=== PATIENT | female | born 1930 | race Hispanic/Latino ===

== ENCOUNTER 2016-12-03 08:40 | Emergency (ER) | payer MEDICARE ==
[2016-12-03 08:59] VITALS: TEMP 98.3
--- NOTE | 2016-12-03 09:06 | ED PDOC ---
Arrival/HPI - General Time Seen by Provider: 12/03/16 08:47 Historian: Patient, Family - History of Present Illness Narrative History of Present Illness (Text): 12/03/16 08:50 Debbi Peterson is an 85 year old female, whose past medical history includes multiple triple myeloma, andhypercholestrolemia, who presents to the emergency department complaining of dizziness since three days ago. Patient reports feeling this dizziness and loss of balance after she does light activity. She states feeling "heaviness" on her head and notes she has mild shortness of breath due to her intermittent episodes of pain caused by her myeloma. The pain from her myeloma usually comes from the right upper back and moves around to the left side. She also reports feeling lethargic for the past couple of days. Patient denies any chest pain, headache, abdominal pain, nausea, vomiting, diarrhea, dysruia or other complaints. PMD: Dr. Garcia and Dr. Blandon Oncologist: Dr. Vila Time/Duration: < week (3 days) Symptom Onset: Sudden Symptom Course: Unchanged Quality: Other ("heaviness" on head) Activities at Onset: Light Modifying Factors (Text): dizziness during light activity and mild shortness of breath when intermittent episode of pain due to myeloma Associated Symptoms (Text): lethargic Past Medical History - Provider Review Nursing Documentation Reviewed: Yes - Cardiac Hx Cardiac Disorders: Yes - Pulmonary Hx Respiratory Disorders: No - Neurological Hx Neurological Disorder: No - HEENT Hx HEENT Disorder: Yes Hx Cataracts: Yes - Renal Hx Renal Disorder: No - Endocrine/Metabolic Hx Endocrine Disorders: Yes Hx Hyperthyroidism: Yes - Hematological/Oncological Hx Blood Disorders: Yes Hx Lymphoma: Yes - Integumentary Hx Dermatological Disorder: Yes Other/Comment: skin cancer - Musculoskeletal/Rheumatological Hx Musculoskeletal Disorders: Yes Hx Arthritis: Yes - Gastrointestinal Hx Gastrointestinal Disorders: No - Genitourinary/Gynecological Hx Genitourinary Disorders: No - Psychiatric Hx Psychophysiologic Disorder: No Hx Substance Use: No - Past Surgical History Past Surgical History: No Previous - Surgical History Hx Hysterectomy: Yes Other/Comment: knee replacement Family/Social History - Physician Review Nursing Documentation Reviewed: Yes Family/Social History: Unknown Family HX Smoking Status: Never Smoked Hx Alcohol Use: No Hx Substance Use: No Allergies/Home Meds Allergies/Adverse Reactions: Allergies atorvastatin calcium [From Lipitor] Allergy (Verified 07/27/15 11:29) SWELLING naproxen Allergy (Verified 07/27/15 11:29) RASH shellfish derived Allergy (Verified 07/27/15 11:29) SWELLING Home Medications: Home Meds Medication Instructions Recorded Confirmed traMADol [Ultram] 50 mg PO Q6 PRN 12/03/16 12/03/16 Review of Systems - Review of Systems Constitutional: Fatigue. absent: Fevers Respiratory: SOB (mild shortness of breath when pain of myeloma presents) Cardiovascular: absent: Chest Pain Gastrointestinal: absent: Abdominal Pain, Diarrhea, Nausea, Vomiting Genitourinary Female: absent: Dysuria Neurological: Dizziness. absent: Headache Physical Exam Vital Signs Reviewed: Yes Vital Signs Temp Pulse Resp BP Pulse Ox 12/03/16 11:51 60 16 135/61 99 12/03/16 10:41 52 L 12 123/69 98 12/03/16 08:53 98.3 F 70 18 150/66 88 L Temperature: Afebrile Blood Pressure: Normal Pulse: Regular Respiratory Rate: Normal Appearance: Positive for: Well-Appearing, Non-Toxic, Comfortable Pain Distress: None Mental Status: Positive for: Alert and Oriented X 3 - Systems Exam Head: Present: Atraumatic, Normocephalic Pupils: Present: PERRL Extroacular Muscles: Present: EOMI Conjunctiva: Present: Normal Neck: Present: Normal Range of Motion Respiratory/Chest: Present: Clear to Auscultation, Good Air Exchange. No: Respiratory Distress, Accessory Muscle Use Cardiovascular: Present: Regular Rate and Rhythm, Normal S1, S2. No: Murmurs Abdomen: Present: Normal Bowel Sounds. No: Tenderness, Distention, Peritoneal Signs Upper Extremity: Present: Normal Inspection. No: Cyanosis, Edema Lower Extremity: Present: Normal Inspection. No: Edema Neurological: Present: GCS=15, CN II-XII Intact, Speech Normal Skin: Present: Warm, Dry, Normal Color. No: Rashes Psychiatric: Present: Alert, Oriented x 3, Normal Insight, Normal Concentration Medical Decision Making ED Course and Treatment: 12/03/16 Impression: 85 year old female with 3 days of dizziness and mild shortness of breath due to multiple myeloma diagnosis. Differential Diagnosis included but are not limited to: electro abnormality vs. brain tumor. secondary complain r/o ACS vs. pulmonary embolism Plan: -- EKG -- Chest X-ray -- CT Head without contrast -- Labs -- Reassess and disposition Progress Notes: EKG: Ordered, reviewed, and independently interpreted the EKG. Rate : 61 BPM Rhythm : NSR Interpretation : Q waves. LVH 12/03/16 10:[address] without contrast: Creator : Jewell Hurtado MD COMPARISON: 12/24/2013 FINDINGS: HEMORRHAGE: No intracranial hemorrhage. BRAIN: There is interval increase in size of known 3.6 x 2.8 cm left frontal parafalcine peripherally calcified meningioma with vasogenic edema in the posterior parasagittal white matter. There is no midline shift. There are mild chronic microangiopathic changes. There is no extra-axial fluid collection. VENTRICLES:There is mild age-related global parenchymal volume loss and proportionate enlargement of the ventricles and cortical sulci. CALVARIUM: Unremarkable. PARANASAL SINUSES: Unremarkable as visualized. No significant inflammatory changes. MASTOID AIR CELLS: Unremarkable as visualized. No inflammatory changes. OTHER FINDINGS: None. IMPRESSION: No acute intracranial abnormality. Interval mild increase in size of known left anterior frontal parafalcine peripherally calcified meningioma with vasogenic edema in the posterior parasagittal frontal white matter. No herniation or midline shift. 12/03/16 12:36 Patient's CXR nl. EKG reviewed. CT head reviewed with patient. D-dimer elevated. CTA results pending. Case signed out to Dr. Farnsworth to f/u CT, reevaluate and disposition. - Lab Interpretations Lab Results: 12/03/16 10:13 12/03/16 10:13 Lab Results 12/03/16 11:06: Blood Type Confirm A NEGATIVE 12/03/16 10:13: Blood Type A NEGATIVE, Antibody Screen Negative, BBK History Checked No verified bt 12/03/16 10:13: Sodium 140, Potassium 4.3, Chloride 107, Carbon Dioxide 26, Anion Gap 11, BUN 27 H, Creatinine 0.8, Est GFR ( Amer) > 60, Est GFR ( Non-Af Amer) > 60, Random Glucose 92, Calcium 9.2, Total Bilirubin 0.8, AST 19, ALT 16, Alkaline Phosphatase 70, Troponin I < 0.01, NT-Pro-B Natriuret Pep 67.7 , Total Protein 10.4 H, Albumin 3.7, Globulin 6.7, Albumin/Globulin Ratio 0.6 L , Triglycerides 46, Cholesterol 221 H, LDL Cholesterol Direct 77, HDL Cholesterol 75 H 12/03/16 10:13: PT 11.2, INR 1.04, APTT 23.3 L, D-Dimer, Quantitative 2.31 H 12/03/16 10:13: WBC 6.6, RBC 4.16, Hgb 11.8 L, Hct 36.2, MCV 87.0, MCH 28.4, MCHC 32.6, RDW 14.3, Plt Count 241, MPV 8.9, Gran % 62.1, Lymph % (Auto) 30.0, [place] % (Auto) 6.3 H, Eos % (Auto) 1.1 L, Baso % (Auto) 0.5, Gran # 4.13, Lymph # 2.0, [place] # 0.4, Eos # 0.1, Baso # 0.03 I have reviewed the lab results: Yes - RAD Interpretation Radiology Orders: 12/03/16 09:06 HEAD W/O CONTRAST [CT] Stat CHEST PORTABLE [RAD] Stat 12/03/16 11:14 ANGIO CHEST PE PROTOCOL [CT] Stat Director Advanced: Radiologist - EKG Interpretation Interpreted by ED Physician: Yes Type: 12 lead EKG - Medication Orders Current Medication Orders: Discontinued Medications Iodixanol (Visipaque 320 Mg/Ml 100 Ml) Confirm Administered Dose 100 ml IV .[employer]- MED ONE Stop: 12/03/16 11:22 - Scribe Statement The provider has reviewed the documentation as recorded by the Shelly Pabon Provider Scribe Attestation: All medical record entries made by the Shelly were at my direction and personally dictated by me. I have reviewed the chart and agree that the record accurately reflects my personal performance of the history, physical exam, medical decision making, and the department course for this patient. I have also personally directed, reviewed, and agree with the discharge instructions and disposition. Disposition/Present on Arrival - Present on Arrival Any Indicators Present on Arrival: No History of DVT/PE: No History of Uncontrolled Diabetes: No Urinary Catheter: No History Surgical Site Infection Following: None - Disposition Have Diagnosis and Disposition been Completed?: No Diagnosis: Dizziness, Shortness of breath Disposition Time: 12:15 Condition: GOOD Referrals: Juma Blandon MD [Primary Care Provider] - Follow up with primary
[2016-12-03 09:07] VITALS: BMI 21.4
--- NOTE | 2016-12-03 09:45 | CT ---
PROCEDURE: CT HEAD WITHOUT CONTRAST. HISTORY: Dizziness COMPARISON: 12/24/2013 TECHNIQUE: Axial computed tomography images were obtained through the head/brain without intravenous contrast. Radiation dose: Total exam DLP = 677.45 MGy-cm. This CT exam was performed using one or more of the following dose reduction techniques: Automated exposure control, adjustment of the mA and/or kV according to patient size, and/or use of iterative reconstruction technique. FINDINGS: HEMORRHAGE: No intracranial hemorrhage. BRAIN: There is interval increase in size of known 3.6 x 2.8 cm left frontal parafalcine peripherally calcified meningioma with vasogenic edema in the posterior parasagittal white matter. There is no midline shift. There are mild chronic microangiopathic changes. There is no extra-axial fluid collection. VENTRICLES: There is mild age-related global parenchymal volume loss and proportionate enlargement of the ventricles and cortical sulci. CALVARIUM: Unremarkable. PARANASAL SINUSES: Unremarkable as visualized. No significant inflammatory changes. MASTOID AIR CELLS: Unremarkable as visualized. No inflammatory changes. OTHER FINDINGS: None. IMPRESSION: No acute intracranial abnormality. Interval mild increase in size of known left anterior frontal parafalcine peripherally calcified meningioma with vasogenic edema in the posterior parasagittal frontal white matter. No herniation or midline shift.
[2016-12-03 10:19] LABS: BASO # 0.03 K/mm3 (0.0-2.0); BASO % 0.5 % (0.0-3.0); EOS # 0.1 (0.0-0.7); EOS % 1.1 % (1.5-5.0); GRAN # 4.13 (1.4-6.5); GRAN % 62.1 % (50.0-68.0); HEMATOCRIT 36.2 % (36.0-48.0); MEAN CORPUSCULAR HEMOGLOBIN 28.4 pg (25.0-35.0); MEAN CORPUSCULAR HGB CONC 32.6 g/dl (31.0-37.0); MEAN PLATELET VOLUME 8.9 fl (7.0-11.0); MONO # 0.4 (0.1-0.6); MONO % 6.3 % (1.0-6.0); RED CELL DISTRIBUTION WIDTH 14.3 % (11.5-14.5); WHITE BLOOD COUNT 6.6 10^3/ul (4.5-11.0)
[2016-12-03 10:31] LABS: ALB/GLOB RATIO 0.6 (1.1-1.8); ALKALINE PHOSPHATASE 70 U/L (38-126); ALT/SGPT 16 U/L (7-56); AST/SGOT 19 U/L (14-36); BILIRUBIN,TOTAL 0.8 mg/dL (0.2-1.3); BLOOD UREA NITROGEN 27 mg/dL (7-21); CALCIUM 9.2 mg/dL (8.4-10.5); CARBON DIOXIDE 26 mmol/L (21-33); CHLORIDE 107 mmol/L (98-107); CHOLESTEROL 221 mg/dL (130-200); GFR AFRICAN-AMERICAN > 60; GLUCOSE,RANDOM 92 mg/dL (70-110); POTASSIUM 4.3 mmol/L (3.6-5.0); SODIUM 140 mmol/L (132-148); TOTAL PROTEIN 10.4 g/dL (5.8-8.3)
[2016-12-03 10:41] LABS: INR 1.04 (0.93-1.08); PARTIAL THROMBOPLASTIN TIME 23.3 Seconds (23.7-30.8)
[2016-12-03 10:43] LABS: D DIMER 2.31 mg/L FEU (0-0.50)
[2016-12-03 10:46] LABS: TROPONIN I < 0.01 ng/mL
[2016-12-03] MEDS ORDERED: Iodixanol 320 MG/ML 100 ML BOTTLE IV ONE (11:21)
--- NOTE | 2016-12-03 12:44 | RAD ---
HISTORY: back to chest pain COMPARISON: 04/02/2016. FINDINGS: LUNGS: The lungs are well inflated and clear. PLEURA: No significant pleural effusion identified, no pneumothorax apparent. CARDIOVASCULAR: The heart is normal in size. Atherosclerotic aortic arch calcifications are present. OSSEOUS STRUCTURES: No significant abnormalities. VISUALIZED UPPER ABDOMEN: Normal. OTHER FINDINGS: None. IMPRESSION: No acute findings.
--- NOTE | 2016-12-03 13:05 | CT ---
PROCEDURE: CT Chest with contrast (Pulmonary Angiogram) HISTORY: r/o PE COMPARISON: None available. TECHNIQUE: Axial computed tomography images were obtained of the chest in the pulmonary arterial phase of enhancement. Coronal and sagittal reformatted images were created and reviewed. Intravenous contrast dose: 100 cc of Omnipaque 350 Radiation dose: Total exam DLP = 170 mGy-cm. This CT exam was performed using one or more of the following dose reduction techniques: Automated exposure control, adjustment of the mA and/or kV according to patient size, and/or use of iterative reconstruction technique. FINDINGS: PULMONARY ARTERIES: Unremarkable. No pulmonary embolism. AORTA: No acute findings. No thoracic aortic aneurysm. LUNGS: Minimal bibasilar linear fibrotic change. No nodule, mass or pulmonary consolidation. PLEURAL SPACES: Unremarkable. No effusion or pneuomothorax. HEART: Unremarkable. No cardiomegaly. No significant pericardial effusion. LYMPH NODES: No lymphadenopathy. BONES, CHEST WALL: Unremarkable. No fracture or destructive lesion OTHER FINDINGS: Unremarkable. IMPRESSION: No pulmonary embolism.
[2016-12-03 13:10] VITALS: BP 140/60; PULSE 70; RESP 19; O2SAT 98
--- NOTE | 2016-12-03 20:54 | CARD ---
APPROVED REPORT EKG Measurement Heart [id number] OK 120P57 [id number] <Conclusion> Normal sinus rhythm Cannot rule out Anterior infarct, age undetermined Abnormal ECG
== END 2016-12-03 13:47 | disposition home or self-care (01) ==
LOC: ED 08:40
DX: R06.02 Shortness of breath (principal); R42 Dizziness and giddiness
CPT/HCPCS: 70450; 71010; 71275; 80053; 80061; 83036; 83880; 84484; 85025; 85378; 85610; 85730; 86850; 86900; 93005; 99285; Q9967

== ENCOUNTER 2017-02-06 13:08 | Emergency (ER) | payer MEDICARE ==
[2017-02-06 13:09] VITALS: BMI 21.4
--- NOTE | 2017-02-06 13:36 | ED PDOC ---
Arrival/HPI - General Time Seen by Provider: 02/06/17 13:10 Historian: Patient EM Caveat: Acuity of Condition - History of Present Illness Narrative History of Present Illness (Text): 86 year old female w/ past medical history of multiple myeloma w/ osseous mets , hypertension presents complaining of several days of lower back pain most prominent in the SI joints r> l s/p accidental trip and fall while walking with laundry several days ago, denies any concomitant loc/head trauma nor other bony pain or joint pain s nor antecedent symptoms. USOH x past 2 wks. Pain has Time/Duration: < week Past Medical History - Provider Review Nursing Documentation Reviewed: Yes - Cardiac Hx Cardiac Disorders: Yes - Pulmonary Hx Respiratory Disorders: No - Neurological Hx Neurological Disorder: No - HEENT Hx HEENT Disorder: Yes Hx Cataracts: Yes - Renal Hx Renal Disorder: No - Endocrine/Metabolic Hx Endocrine Disorders: Yes Hx Hyperthyroidism: Yes - Hematological/Oncological Hx Blood Disorders: Yes Hx Lymphoma: Yes - Integumentary Hx Dermatological Disorder: Yes Other/Comment: skin cancer - Musculoskeletal/Rheumatological Hx Musculoskeletal Disorders: Yes Hx Arthritis: Yes - Gastrointestinal Hx Gastrointestinal Disorders: No - Genitourinary/Gynecological Hx Genitourinary Disorders: No - Psychiatric Hx Psychophysiologic Disorder: No Hx Substance Use: No - Past Surgical History Past Surgical History: No Previous - Surgical History Hx Hysterectomy: Yes Other/Comment: knee replacement Family/Social History - Physician Review Nursing Documentation Reviewed: Yes Family/Social History: No Known Family HX Smoking Status: Never Smoked Hx Alcohol Use: No Hx Substance Use: No Allergies/Home Meds Allergies/Adverse Reactions: Allergies atorvastatin calcium [From Lipitor] Allergy (Verified 02/06/17 13:36) SWELLING codeine Allergy (Verified 02/06/17 13:36) SWELLING naproxen Allergy (Verified 02/06/17 13:36) RASH shellfish derived Allergy (Verified 02/06/17 13:36) SWELLING codeine Allergy (Uncoded 02/06/17 13:36) SWELLING tongue Home Medications: Home Meds Medication Instructions Recorded Confirmed traMADol [Ultram] 50 mg PO Q6 PRN 12/03/16 02/06/17 Review of Systems - Physician Review All systems were reviewed & negative as marked: Yes - Review of Systems Constitutional: Normal Eyes: Normal ENT: Normal Respiratory: Normal Cardiovascular: Normal Gastrointestinal: Normal Genitourinary Female: Normal Musculoskeletal: Arthralgias, Back Pain Skin: Normal Neurological: Normal Endocrine: Normal Hemo/Lymphatic: Normal Psychiatric: Normal Physical Exam Vital Signs Reviewed: Yes Vital Signs Temp Pulse Resp BP Pulse Ox 02/06/17 15:09 98.5 F 61 18 109/71 95 02/06/17 13:24 98.6 F 86 18 129/87 98 Temperature: Afebrile Blood Pressure: Normal Pulse: Regular Respiratory Rate: Normal Appearance: Positive for: Well-Appearing, Non-Toxic, Comfortable Pain Distress: None Mental Status: Positive for: Alert and Oriented X 3 - Systems Exam Head: Present: Atraumatic, Normocephalic Pupils: Present: PERRL Extroacular Muscles: Present: EOMI Conjunctiva: Present: Normal Mouth: Present: Moist Mucous Membranes Neck: Present: Normal Range of Motion Respiratory/Chest: Present: Clear to Auscultation, Good Air Exchange. No: Respiratory Distress, Accessory Muscle Use Cardiovascular: Present: Regular Rate and Rhythm, Normal S1, S2. No: Murmurs Abdomen: Present: Normal Bowel Sounds. No: Tenderness, Distention, Peritoneal Signs Back: Present: Normal Inspection Upper Extremity: Present: Normal Inspection. No: Cyanosis, Edema Lower Extremity: Present: Normal Inspection, Other (nomidpisnal ttp/ + b/l si joint ttp r>l ). No: Edema Neurological: Present: GCS=15, CN II-XII Intact, Speech Normal, Motor Func Grossly Intact, Normal Sensory Function, Normal Cerebellar Funct, Norm Deep Tendon Reflexes, Gait Normal, Memory Normal Skin: Present: Warm, Dry, Normal Color. No: Rashes Psychiatric: Present: Alert, Oriented x 3, Normal Insight, Normal Concentration Medical Decision Making ED Course and Treatment: son Thang Peterson [phone] cell phone wants to be notified if all clinical decisions. 02/06/17 13:44 02/06/17 16:23 -Serial neurological exams benign. -Lab wnl. - pt will be discharged with more powerful analgesics. and follow up with her pmd. 02/06/17 16:25 - Lab Interpretations Lab Results: 02/06/17 14:15 02/06/17 14:15 Lab Results 02/06/17 14:15: Sodium 142, Potassium 4.3, Chloride 110 H, Carbon Dioxide 26, Anion Gap 10, BUN 19, Creatinine 0.8, Est GFR ( Amer) > 60, Est GFR (Non- Af Amer) > 60, Random Glucose 82, Calcium 9.9, Total Bilirubin 0.9, AST 22, ALT 15, Alkaline Phosphatase 83, Total Protein 11.1 H, Albumin 4.0, Globulin 7.1, Albumin/Globulin Ratio 0.6 L 02/06/17 14:15: PT 11.8, INR 1.08, APTT 31.0 02/06/17 14:15: WBC 5.8, RBC 4.05, Hgb 11.6 L, Hct 35.9 L, MCV 88.6, MCH 28.6, MCHC 32.3, RDW 14.6 H, Plt Count 242, MPV 9.1, Gran % 55.8, Lymph % (Auto) 33.1 , [place] % (Auto) 6.1 H, Eos % (Auto) 4.5, Baso % (Auto) 0.5, Gran # 3.22, Lymph # 1.9, [place] # 0.4, Eos # 0.3, Baso # 0.03 - RAD Interpretation Radiology Orders: 02/06/17 13:39 PELVIS W/O PO OR IV CONTRAST [CT] Stat 02/06/17 13:40 LUMBAR SPINE W/O CONTRAST [CT] Stat - Medication Orders Current Medication Orders: Discontinued Medications Cyclobenzaprine HCl (Flexeril) 5 mg PO STAT STA Stop: 02/06/17 13:42 Last Admin: 02/06/17 14:00 Dose: 5 mg Oxycodone/Acetaminophen (Percocet 5/325 Mg Tab) 1 tab PO STAT STA Stop: 02/06/17 13:42 Last Admin: 02/06/17 14:00 Dose: 1 tab [facility] Pain Assessment Document 02/06/17 14:00 AB (Rec: 02/06/17 14:21 AB [id number]) Pain Reassessment Is this a pain reassessment? Yes Sleep Is patient sleeping during reassessment? No Presence of Pain Presence of Pain Yes Pain Scale Used Pain Scale Used Numeric Location Left, Right or Bilateral Bilateral Upper or Lower Lower Pain Location Body Site Back Description Description Constant Intensity of Pain at present 7 Pain Behavior Irritability Aggravating Factors Changing Position Alleviating Factors/Management Medication Techniques Alleviating Factors Medication Re-Assess: MAR Pain Assessment Document 02/06/17 15:00 AB (Rec: 02/06/17 15:42 AB [id number]) Pain Reassessment Is this a pain reassessment? Yes Sleep Is patient sleeping during reassessment? No Presence of Pain Presence of Pain No Pain Scale Used Pain Scale Used Numeric Disposition/Present on Arrival - Present on Arrival Any Indicators Present on Arrival: No History of DVT/PE: No History of Uncontrolled Diabetes: No Urinary Catheter: No History Surgical Site Infection Following: None - Disposition Have Diagnosis and Disposition been Completed?: Yes Diagnosis: Sciatica of right side, Back pain Disposition: HOME/ ROUTINE Disposition Time: 16:26 Patient Plan: Discharge Condition: IMPROVED Discharge Instructions (ExitCare): Acute Low Back Pain (ED), Sacroiliitis (ED) Print Language: MALTESE Additional Instructions: apply warm compressess after taking medicines, to facilitate mosucle rlexation and pain release. Beware of constipation while taking the percocets. Follow up with your regular doctor regarding today's visit we have given you copies of your imaging we have found no evidence of fracture. Prescriptions: oxyCODONE/Acetaminophen [Percocet 5/325 mg Tab] 1 ea PO Q6 PRN #14 tab PRN Reason: Pain, Moderate (4-7) Referrals: Juma Blandon MD [Primary Care Provider] - Follow up with primary
[2017-02-06] MEDS ORDERED: Oxycodone/Acetaminophen 5/325 mg Tab PO STA (13:41)
[2017-02-06 14:34] LABS: BASO # 0.03 K/mm3 (0.0-2.0); BASO % 0.5 % (0.0-3.0); EOS # 0.3 (0.0-0.7); EOS % 4.5 % (1.5-5.0); GRAN # 3.22 (1.4-6.5); GRAN % 55.8 % (50.0-68.0); HEMATOCRIT 35.9 % (36.0-48.0); LYMPH # 1.9 (1.2-3.4); LYMPH % 33.1 % (22.0-35.0); MEAN CELL VOLUME 88.6 fl (80.0-105.0); MEAN CORPUSCULAR HEMOGLOBIN 28.6 pg (25.0-35.0); MEAN CORPUSCULAR HGB CONC 32.3 g/dl (31.0-37.0); MEAN PLATELET VOLUME 9.1 fl (7.0-11.0); MONO # 0.4 (0.1-0.6); MONO % 6.1 % (1.0-6.0); RED CELL DISTRIBUTION WIDTH 14.6 % (11.5-14.5); WHITE BLOOD COUNT 5.8 10^3/ul (4.5-11.0)
[2017-02-06 14:41] LABS: INR 1.08 (0.93-1.08)
--- NOTE | 2017-02-06 14:58 | CARD ---
APPROVED REPORT EKG Measurement Heart [id number] SD 116P40 [id number] <Conclusion> Normal sinus rhythm 1 APC IMI
[2017-02-06 15:06] LABS: ALKALINE PHOSPHATASE 83 U/L (38-126); ALT/SGPT 15 U/L (7-56); AST/SGOT 22 U/L (14-36); BILIRUBIN,TOTAL 0.9 mg/dL (0.2-1.3); BLOOD UREA NITROGEN 19 mg/dL (7-21); CALCIUM 9.9 mg/dL (8.4-10.5); CARBON DIOXIDE 26 mmol/L (21-33); CHLORIDE 110 mmol/L (98-107); GFR AFRICAN-AMERICAN > 60; GLUCOSE,RANDOM 82 mg/dL (70-110); POTASSIUM 4.3 mmol/L (3.6-5.0); SODIUM 142 mmol/L (132-148)
--- NOTE | 2017-02-06 15:31 | CT ---
PROCEDURE: CT Lumbar Spine without contrast HISTORY: Recent traumatic event. History of bony metastatic disease. COMPARISON: None. TECHNIQUE: Axial computed tomography images were obtained of the lumbar spine without the use of intravenous contrast. Coronal and sagittal reformatted images were created and reviewed. Radiation dose: Total exam DLP = 284.77 mGy-cm. This CT exam was performed using one or more of the following dose reduction techniques: Automated exposure control, adjustment of the mA and/or kV according to patient size, and/or use of iterative reconstruction technique. FINDINGS: VERTEBRAE: Punctate sclerotic foci a identified L4 vertebral body. Additional punctate foci left sacral alae and medial left iliac bone. DISCS/SPINAL CANAL/NEURAL FORAMINA: L1-2: Severe disc degenerative change, associated vacuum disc phenomenon. L2-3: Degenerative changes primarily affecting the apophyseal joints. No evidence of canal stenosis L3-4: Mild lumbar stenosis primarily at hypertrophy of the ligamentum flavum and annular bulging. L4-5: Severe disc degenerative change, virtual absence of the disc space. Vacuum disc phenomenon. Proliferative hypertrophic changes involving the posterior elements resulting in mild canal stenosis without focal disc herniation. L5-S1: Unremarkable. PARASPINAL SOFT TISSUES: Unremarkable. OTHER FINDINGS: None. IMPRESSION: Small sclerotic foci which may represent sclerotic metastatic disease. Multilevel degenerative changes resulting in the canal stenosis at L4-5 to a greater extent than L3-4. No acute findings related to/accounting for the clinical presentation.
--- NOTE | 2017-02-06 15:47 | CT ---
PROCEDURE: CT Pelvis without contrast HISTORY: fall, bony mets/ r>l si joint pain //tp COMPARISON: None. TECHNIQUE: Contiguous axial images of the pelvis . No intravenous or oral contrast given. Coronal and sagittal reformats generated. Radiation dose: Total exam DLP = 252.48 mGy-cm. This CT exam was performed using one or more of the following dose reduction techniques: Automated exposure control, adjustment of the mA and/or kV according to patient size, and/or use of iterative reconstruction technique. FINDINGS: BLADDER: Unremarkable. No mass. REPRODUCTIVE ORGANS: Unremarkable. VISUALIZED BOWEL: Diverticulosis without an acute inflammatory component or other associated pathologic process. PERITONEUM: Unremarkable, as visualized. No free fluid. No free air. LYMPH NODES: Unremarkable. No enlarged lymph nodes. BONES: Multiple sclerotic areas consistent with known metastatic disease affecting lumbar spine, sacrum, left iliac bone, of lower sacral elements on the right, no evidence of expansile or destructive osseous abnormalities. No evidence of lytic abnormalities or findings to suggest pathologic fracture. VASCULATURE: Unremarkable. OTHER FINDINGS: None. IMPRESSION: No acute findings related to/accounting for the clinical presentation. Sclerotic osseous metastatic disease
[2017-02-06 15:48] LABS: ALB/GLOB RATIO 0.6 (1.1-1.8); TOTAL PROTEIN 11.1 g/dL (5.8-8.3)
[2017-02-06 17:15] VITALS: BP 107/71; PULSE 80; RESP 17; TEMP 97.6; O2SAT 99
== END 2017-02-06 17:14 | disposition home or self-care (01) ==
LOC: ED 13:08
DX: M54.31 Sciatica, right side (principal); I10 Essential (primary) hypertension; Z85.79 Personal history of other malignant neoplasms of lymphoid, hematopoietic and related tissues

== ENCOUNTER 2017-05-15 07:46 | Day surgery (SDC) | payer MEDICARE, BC ==
[2017-05-08 12:12] VITALS: BMI 20.2
[2017-05-15] MEDS ORDERED: Propofol 10 mg/ml Inj (20 ML) ONE (09:13)
[2017-05-15] MEDS ORDERED: Sodium Chloride 0.9% 500 ML IV SCH (10:00)
[2017-05-15 10:37] VITALS: O2SAT 100
[2017-05-15 17:00] VITALS: BP 126/74; PULSE 72; RESP 18; TEMP 97.8
== END 2017-05-15 11:44 | disposition home or self-care (01) ==
LOC: ENDO 07:46
PROVIDERS: ATTEND Specialist
DX: D64.9 Anemia, unspecified (principal); K63.5 Polyp of colon; K57.30 Diverticulosis of large intestine without perforation or abscess without bleeding; K64.8 Other hemorrhoids
CPT/HCPCS: 45385; 88305; J2704; J7040

== ENCOUNTER 2017-07-06 20:06 | Emergency (ER) | payer MEDICARE, BC ==
[2017-07-06 20:07] VITALS: BMI 20.2
--- NOTE | 2017-07-06 21:44 | ED PDOC ---
Arrival/HPI - General Chief Complaint: Lower Extremity Problem/Injury Time Seen by Provider: 07/06/17 20:09 Historian: Patient - History of Present Illness Narrative History of Present Illness (Text): 07/06/17 21:39 86 year old female whose past medical history includes multiple myeloma with charis mets (on Revlimid) and hypertension presents to the emergency department complaining of bruising to the right anterior lower leg. Patient does not recollect any blunt trauma. Patient reports some minimal discomfort to the skin area. Patient denies any history of bleeding gums, rectal bleeding, or any other bruising. Patient is not on any blood thinners. Patient denies any fever, chills, chest pain, shortness of breath, nausea, vomiting, diarrhea, urinary symptoms, calf pain/swelling, back pain, neck pain, headache, dizziness, or any other complaints. Symptom Onset: Sudden Symptom Course: Unchanged Activities at Onset: Light Context: Home Past Medical History - Provider Review Nursing Documentation Reviewed: Yes - Infectious Disease Hx of Infectious Diseases: None - Cardiac Hx Pacemaker: No - Pulmonary Hx Respiratory Disorders: No - Neurological Hx Neurological Disorder: No - HEENT Hx HEENT Disorder: Yes Hx Cataracts: Yes - Renal Hx Renal Disorder: No - Endocrine/Metabolic Hx Endocrine Disorders: Yes Hx Hyperthyroidism: Yes - Hematological/Oncological Hx Blood Transfusions: No - Integumentary Hx Dermatological Disorder: Yes Other/Comment: skin cancer - Musculoskeletal/Rheumatological Hx Musculoskeletal Disorders: No - Gastrointestinal Hx Gastrointestinal Disorders: No - Genitourinary/Gynecological Hx Genitourinary Disorders: No - Psychiatric Hx Emotional Abuse: No Hx Physical Abuse: No Hx Substance Use: No - Past Surgical History Past Surgical History: No Previous - Surgical History Hx Hysterectomy: Yes Other/Comment: knee replacement - Anesthesia Hx Anesthesia Reactions: No Hx Malignant Hyperthermia: No - Suicidal Assessment Feels Threatened In Home Enviroment: No Family/Social History - Physician Review Nursing Documentation Reviewed: Yes Family/Social History: No Known Family HX Smoking Status: Never Smoked Hx Alcohol Use: No Hx Substance Use: No Allergies/Home Meds Allergies/Adverse Reactions: Allergies atorvastatin [From Lipitor] Allergy (Verified 05/08/17 12:16) SWELLING codeine Allergy (Verified 05/08/17 12:16) RASH naproxen Allergy (Verified 05/08/17 12:16) RASH shellfish derived Allergy (Verified 05/08/17 12:16) ANGIOEDEMA Home Medications: Home Meds Medication Instructions Recorded Confirmed traMADol [Ultram] 50 mg PO Q6 PRN 12/03/16 07/06/17 Adult Low Dose Aspirin EC 1 tab PO DAILY 05/08/17 07/06/17 Gemfibrozil [Lopid] 1 tab PO DAILY 05/08/17 07/06/17 Bortezomib [Velcade] 3.5 mg SQ Q7D 05/13/17 07/06/17 Cholecalciferol [Vitamin D 1000 IU] 1 tab PO DAILY 05/13/17 07/06/17 Cyanocobalamin (Vitamin B-12) 1 tab PO DAILY 05/13/17 07/06/17 [Vitamin B-12] Dexamethasone [Decadron] 4 mg PO QWK 05/13/17 07/06/17 Lenalidomide [Revlimid] 10 mg PO Q21D 05/13/17 07/06/17 Review of Systems - Physician Review All systems were reviewed & negative as marked: Yes - Review of Systems Constitutional: absent: Fevers, Other (Chills) Respiratory: absent: SOB Cardiovascular: absent: Chest Pain Gastrointestinal: absent: Diarrhea, Nausea, Vomiting Genitourinary Female: absent: Dysuria, Frequency, Hematuria Musculoskeletal: absent: Back Pain, Neck Pain, Other ((-)Calf swelling/pain, (-) leg swelling) Skin: Other (Bruise to the right anterior lower leg) Neurological: absent: Headache, Dizziness Physical Exam Vital Signs Reviewed: Yes Vital Signs Temp Pulse Resp BP Pulse Ox 07/07/17 02:56 65 17 122/51 L 98 07/07/17 00:16 73 17 100/77 100 07/06/17 20:17 97.5 F L 89 18 111/70 100 Temperature: Afebrile Blood Pressure: Normal Pulse: Regular Respiratory Rate: Normal Appearance: Positive for: Well-Appearing, Non-Toxic, Comfortable Pain Distress: None Mental Status: Positive for: Alert and Oriented X 3 - Systems Exam Head: Present: Atraumatic, Normocephalic Pupils: Present: PERRL Extroacular Muscles: Present: EOMI Conjunctiva: Present: Normal Mouth: Present: Moist Mucous Membranes Neck: Present: Normal Range of Motion Respiratory/Chest: Present: Clear to Auscultation, Good Air Exchange. No: Respiratory Distress, Accessory Muscle Use Cardiovascular: Present: Regular Rate and Rhythm, Normal S1, S2. No: Murmurs Abdomen: No: Tenderness, Distention, Peritoneal Signs Back: Present: Normal Inspection Upper Extremity: Present: Normal Inspection. No: Cyanosis, Edema Lower Extremity: Present: Erythema (A few coin sizes area of mild erythema), Other (Superfical ecchymosis bruising to the mid portion of the anterior right lower leg). No: Edema, Swelling Neurological: Present: GCS=15, CN II-XII Intact, Speech Normal Skin: Present: Warm, Dry, Normal Color. No: Rashes Psychiatric: Present: Alert, Oriented x 3, Normal Insight, Normal Concentration Medical Decision Making ED Course and Treatment: 07/06/17 21:51 Impression: 86 year old female presents complaining of bruise to the mid-portion of the right anterior lower leg. Pt past medical history includes multiple myeloma with charis mets (on Revlimid) Plan: -- Labs -- Duplex lower extrem vein bilat -- Reassess and disposition Progress Notes: -Duplex lower extrem vein bilat US Impression: Negative 07/07/17 03:56 On re-evaluation, patient feels better and is in no acute distress. Patient requesting to rest in ER until morning hours so her son could come get her. I have discussed the results and plan with the patient, who expresses understanding. Patient in agreement with plan to be discharged home. Patient is stable for discharge. Patient was instructed to follow up with physician or return if symptoms worsen or new concerning symptoms arise. - Lab Interpretations Lab Results: 07/06/17 21:28 07/06/17 21:28 Lab Results 07/06/17 21:28: WBC 4.5 D, RBC 4.05, Hgb 11.3 L, Hct 34.9 L, MCV 86.2, MCH 27.9 , MCHC 32.4, RDW 16.0 H, Plt Count 177, MPV 10.3 07/06/17 21:28: Sodium 139, Potassium 3.7, Chloride 108 H, Carbon Dioxide 22, Anion Gap 13, BUN 25 H, Creatinine 0.8, Est GFR ( Amer) > 60, Est GFR ( Non-Af Amer) > 60, Random Glucose 159 H, Calcium 9.4, Total Bilirubin 0.9, AST 19, ALT 25, Alkaline Phosphatase 60, Total Protein 7.0, Albumin 3.8, Globulin 3.2, Albumin/Globulin Ratio 1.2 07/06/17 21:28: PT 11.7, INR 1.03, APTT 27.6 I have reviewed the lab results: Yes - RAD Interpretation Radiology Orders: 07/07/17 00:40 DUPLEX LOWER EXTRM VEIN BILAT [US] Stat - Scribe Statement The provider has reviewed the documentation as recorded by the Lanreibe Jack Verduzco Provider Scribe Attestation: All medical record entries made by the Scribe were at my direction and personally dictated by me. I have reviewed the chart and agree that the record accurately reflects my personal performance of the history, physical exam, medical decision making, and the department course for this patient. I have also personally directed, reviewed, and agree with the discharge instructions and disposition. Disposition/Present on Arrival - Present on Arrival Any Indicators Present on Arrival: No History of DVT/PE: No History of Uncontrolled Diabetes: No Urinary Catheter: No History of Decub. Ulcer: No History Surgical Site Infection Following: None - Disposition Have Diagnosis and Disposition been Completed?: Yes Diagnosis: Superficial bruising, Contusion of leg Disposition: HOME/ ROUTINE Disposition Time: 02:00 Patient Plan: Discharge Patient Problems: Current Active Problems Problem Status Onset Contusion of leg Acute Superficial bruising Acute Condition: GOOD Additional Instructions: Avoid any trauma to the area/follow up with your doctor this week Referrals: Kareem Garcia MD [Primary Care Provider] - Follow up with primary Forms: [employer] (Yoruba)
[2017-07-06 21:46] LABS: HEMOGLOBIN 11.3 g/dL (12.0-16.0); MEAN CELL VOLUME 86.2 fl (80.0-105.0); MEAN CORPUSCULAR HEMOGLOBIN 27.9 pg (25.0-35.0); MEAN CORPUSCULAR HGB CONC 32.4 g/dl (31.0-37.0); MEAN PLATELET VOLUME 10.3 fl (7.0-11.0); RBC 4.05 10^6/uL (3.5-6.1); WHITE BLOOD COUNT 4.5 10^3/ul (4.5-11.0)
[2017-07-06 21:47] LABS: INR 1.03 (0.93-1.08); PARTIAL THROMBOPLASTIN TIME 27.6 Seconds (25.1-36.5); PROTHROMBIN TIME 11.7 SECONDS (9.4-12.5)
[2017-07-06 21:53] LABS: ALB/GLOB RATIO 1.2 (1.1-1.8); ALBUMIN 3.8 g/dL (3.0-4.8); ALT/SGPT 25 U/L (7-56); AST/SGOT 19 U/L (14-36); BLOOD UREA NITROGEN 25 mg/dL (7-21); CALCIUM 9.4 mg/dL (8.4-10.5); GFR AFRICAN-AMERICAN > 60; GFR NON-AFRICAN AMERICAN > 60
[2017-07-07 00:17] VITALS: RESP 17
[2017-07-07 02:57] VITALS: O2SAT 98
[2017-07-07 06:41] VITALS: BP 110/52; PULSE 72
[2017-07-07 07:11] VITALS: TEMP 98.1
--- NOTE | 2017-07-07 20:43 | US ---
HISTORY: Leg pain and swelling. Evaluate for DVT PHYSICIAN(S): Narayan Blandon MD. TECHNIQUE: Duplex sonography and color-flow Doppler with graded compression were used to evaluate the deep venous systems of both lower extremities. FINDINGS: The visualized deep venous systems of both lower extremities are sonographically normal and compressible. Normal wave forms and augmentation are seen. There is no sonographic evidence for deep venous thrombosis in the visualized segments of both lower extremities. IMPRESSION: No sonographic evidence for deep venous thrombosis in the visualized segments of both lower extremities.
== END 2017-07-07 07:11 | disposition home or self-care (01) ==
LOC: ED 20:06
DX: S80.11XA Contusion of right lower leg, initial encounter (principal); X58.XXXA Exposure to other specified factors, initial encounter; Y92.9 Unspecified place or not applicable; I10 Essential (primary) hypertension; Z85.79 Personal history of other malignant neoplasms of lymphoid, hematopoietic and related tissues

== ENCOUNTER 2018-01-27 11:36 | Observation (INO) | payer MEDICARE, BC ==
[2018-01-27] MEDS ORDERED: Aspirin 325 mg EC Tablets PO STA (11:49)
[2018-01-27 11:52] VITALS: BMI 23.8
[2018-01-27] MEDS ORDERED: Aspirin 325 mg EC Tablets PO ONE (11:56)
--- NOTE | 2018-01-27 11:59 | ED PDOC ---
Arrival/HPI - General Chief Complaint: Chest Pain Historian: Patient - History of Present Illness Narrative History of Present Illness (Text): 01/27/18 11:56 A 87 year old female, whose past medical history includes multiple myeloma with charis mets (on Revlimid) and hypertension, presents to the emergency department complaining of intermittent chest pain starting this morning. States pain lasted for approximately 5 minutes, along with diaphoresis and lightheadedness. Mentions never having these symptoms before. Notes also experiencing diarrhea from chemo. Patient denies any nausea, vomiting, shortness of breath, or any other complaint at this time. Also, patient denies any history of smoking/EtOH abuse. PMD: Dr. Hilario Tumbler Dyeing Machine Operator: Dr. Pritchett Time/Duration: Other (this morning.) Symptom Onset: Sudden Symptom Course: Unchanged Associated Symptoms (Text): 01/27/18 12:13 Currently pain-free. She did not take her aspirin this morning. Past Medical History - Provider Review Nursing Documentation Reviewed: Yes - Infectious Disease Hx of Infectious Diseases: None - Reproductive Menopause: Yes - Cardiac Hx Pacemaker: No - Pulmonary Hx Respiratory Disorders: No - Neurological Hx Neurological Disorder: No - HEENT Hx HEENT Disorder: Yes Hx Cataracts: Yes - Renal Hx Renal Disorder: No - Endocrine/Metabolic Hx Endocrine Disorders: Yes Hx Hyperthyroidism: Yes - Hematological/Oncological Hx Blood Transfusions: No Other/Comment: multiple myeloma started chemo with Dr Vila 02/2017 - Integumentary Hx Dermatological Disorder: Yes Other/Comment: skin cancer - Musculoskeletal/Rheumatological Hx Musculoskeletal Disorders: No - Gastrointestinal Hx Gastrointestinal Disorders: No - Genitourinary/Gynecological Hx Genitourinary Disorders: No - Psychiatric Hx Emotional Abuse: No Hx Physical Abuse: No Hx Substance Use: No - Past Surgical History Past Surgical History: No Previous - Surgical History Hx Hysterectomy: Yes Other/Comment: knee replacement - Anesthesia Hx Anesthesia: Yes Hx Anesthesia Reactions: No Hx Malignant Hyperthermia: No - Suicidal Assessment Feels Threatened In Home Enviroment: No Family/Social History - Physician Review Nursing Documentation Reviewed: Yes Family/Social History: No Known Family HX Smoking Status: Never Smoked Hx Alcohol Use: No Hx Substance Use: No Allergies/Home Meds Allergies/Adverse Reactions: Allergies atorvastatin [From Lipitor] Allergy (Verified 05/08/17 12:16) SWELLING codeine Allergy (Verified 05/08/17 12:16) RASH naproxen Allergy (Verified 05/08/17 12:16) RASH shellfish derived Allergy (Verified 05/08/17 12:16) ANGIOEDEMA Home Medications: Home Meds Medication Instructions Recorded Confirmed traMADol [Ultram] 50 mg PO Q6 PRN 12/03/16 07/06/17 Adult Low Dose Aspirin EC 1 tab PO DAILY 05/08/17 07/06/17 Gemfibrozil [Lopid] 1 tab PO DAILY 05/08/17 07/06/17 Bortezomib [Velcade] 3.5 mg SQ Q7D 05/13/17 07/06/17 Cholecalciferol [Vitamin D 1000 IU] 1 tab PO DAILY 05/13/17 07/06/17 Cyanocobalamin (Vitamin B-12) 1 tab PO DAILY 05/13/17 07/06/17 [Vitamin B-12] Dexamethasone [Decadron] 4 mg PO QWK 05/13/17 07/06/17 Lenalidomide [Revlimid] 10 mg PO Q21D 05/13/17 07/06/17 Review of Systems - Physician Review All systems were reviewed & negative as marked: Yes - Review of Systems Constitutional: absent: Fatigue, Fevers Respiratory: absent: SOB, Cough Cardiovascular: Chest Pain. absent: Palpitations, Syncope Gastrointestinal: Diarrhea. absent: Abdominal Pain, Nausea, Vomiting Neurological: Dizziness (lightheadedness). absent: Headache, Focal Weakness Endocrine: Diaphoresis Physical Exam Vital Signs Reviewed: Yes Vital Signs Pulse Resp BP Pulse Ox 01/27/18 11:45 69 19 129/79 97 Blood Pressure: Normal Pulse: Regular Respiratory Rate: Normal Appearance: Positive for: Ill-Appearing (chronically ill-appearing), Cachectic, Other (thin) Pain Distress: None Mental Status: Positive for: Alert and Oriented X 3 - Systems Exam Head: Present: Atraumatic, Normocephalic Pupils: Present: PERRL Extroacular Muscles: Present: EOMI Conjunctiva: Present: Normal Mouth: Present: Moist Mucous Membranes Pharnyx: No: ERYTHEMA, EXUDATE, TONSILS ENLARGED Neck: Present: Normal Range of Motion Respiratory/Chest: Present: Clear to Auscultation, Good Air Exchange. No: Respiratory Distress, Accessory Muscle Use, Tender to Palpation Cardiovascular: Present: Regular Rate and Rhythm, Normal S1, S2. No: Murmurs Abdomen: No: Tenderness, Distention, Peritoneal Signs Back: Present: Normal Inspection Upper Extremity: Present: Normal Inspection. No: Cyanosis, Edema Lower Extremity: Present: Normal Inspection. No: Edema Neurological: Present: GCS=15, CN II-XII Intact, Speech Normal, Motor Func Grossly Intact Skin: Present: Warm, Dry, Normal Color. No: Rashes Psychiatric: Present: Alert, Oriented x 3, Normal Insight, Normal Concentration Medical Decision Making ED Course and Treatment: 01/27/18 11:58 Impression: 87 year old female with intermittent chest pain. Plan: -- EKG -- Chest X-Ray -- Labs -- Aspirin -- Reassess and disposition Prior Visits: Notes and results from previous visits were reviewed. Patient last seen in the emergency department on 07/06/2017 for bruising to the right anterior lower leg. Patient was discharged home. Progress Notes: 01/27/18 12:14 EKG shows normal sinus rhythm rate approximately [address] or T-wave changes. - RAD Interpretation Radiology Orders: 01/27/18 11:49 CHEST PORTABLE [RAD] Stat Chest one view shows no infiltrate effusion cardiomegaly or pneumothorax. Teacher Of The Emotionally Disturbed: ED Physician - Medication Orders Current Medication Orders: Discontinued Medications Aspirin (Ecotrin) 325 mg PO STAT STA Stop: 01/27/18 11:50 - Scribe Statement The provider has reviewed the documentation as recorded by the [place] Provider Scribe Attestation: All medical record entries made by the Lanreibhiral were at my direction and personally dictated by me. I have reviewed the chart and agree that the record accurately reflects my personal performance of the history, physical exam, medical decision making, and the department course for this patient. I have also personally directed, reviewed, and agree with the discharge instructions and disposition. Disposition/Present on Arrival - Present on Arrival Any Indicators Present on Arrival: No History of DVT/PE: No History of Uncontrolled Diabetes: No Urinary Catheter: No History of Decub. Ulcer: No History Surgical Site Infection Following: None - Disposition Have Diagnosis and Disposition been Completed?: Yes Diagnosis: Chest pain Disposition: HOSPITALIZED Disposition Time: 12:51 Patient Plan: Observation, Telemetry Condition: GOOD Discharge Instructions (ExitCare): Chest Pain (ED) Forms: [employer] (Cambodian)
--- NOTE | 2018-01-27 12:17 | RAD ---
Date of service: 01/27/2018 HISTORY: cp COMPARISON: 12/03/2016 FINDINGS: LUNGS: No active pulmonary disease. PLEURA: No significant pleural effusion identified, no pneumothorax apparent. CARDIOVASCULAR: Minimal aortic calcification Normal cardiac size. No pulmonary vascular congestion. OSSEOUS STRUCTURES: No significant abnormalities. VISUALIZED UPPER ABDOMEN: Normal. OTHER FINDINGS: None. IMPRESSION: No active disease.
[2018-01-27 12:24] LABS: BASO # 0.05 K/mm3 (0.0-2.0); EOS # 0.2 (0.0-0.7); GRAN # 2.75 (1.4-6.5); HEMOGLOBIN 11.4 g/dL (12.0-16.0); LYMPH # 1.3 (1.2-3.4); LYMPH % 25.6 % (22.0-35.0); MEAN CELL VOLUME 88.5 fl (80.0-105.0); MEAN CORPUSCULAR HEMOGLOBIN 28.6 pg (25.0-35.0); MEAN CORPUSCULAR HGB CONC 32.3 g/dl (31.0-37.0); MEAN PLATELET VOLUME 9.7 fl (7.0-11.0); MONO # 0.7 (0.1-0.6); MONO % 14.4 % (1.0-6.0); RBC 3.99 10^6/uL (3.5-6.1); RED CELL DISTRIBUTION WIDTH 15.9 % (11.5-14.5)
[2018-01-27 12:34] LABS: INR 0.99; PARTIAL THROMBOPLASTIN TIME 25.4 Seconds (25.1-36.5); PROTHROMBIN TIME 11.4 SECONDS (9.4-12.5)
[2018-01-27 12:37] LABS: ALBUMIN 3.2 g/dL (3.0-4.8); ALT/SGPT 26 U/L (7-56); AST/SGOT 14 U/L (14-36); BLOOD UREA NITROGEN 19 mg/dL (7-21); CALCIUM 8.9 mg/dL (8.4-10.5); GFR NON-AFRICAN AMERICAN > 60
[2018-01-27 12:48] LABS: TROPONIN I < 0.01 ng/mL
[2018-01-27] MEDS ORDERED: LENALIDOMIDE 10 MG PO SCH (13:45)
--- NOTE | 2018-01-27 15:29 | CP.PCM.HP ---
<Mario Alberto Jenkins - Last Filed: 01/27/18 19:28> History of Present Illness - History of Present Illness History of Present Illness: Mario Alberto Jenkins PGY2 IM H&P Note for Dr. Garcia cc: chest discomfort Ms. Peterson is a 87 year old female with a PMH of a myeloma (dx 3 years ago, on chemo w/ Dr. Vila), skin CA, hyperthyroidism, arthritis who presents to the ED with complaints of substernal chest discomfort which she explains as sharp in nature, radiating to the left shoulder and associated shortness of breath. Patient also complains of dizziness and near syncope. she denies nausea/vomiting, diaphoresis, abdominal pain. The patient denies any history of heart disease, but she was worried due to her chemo drugs and the effects they could have on her heart. 12-point ROS was reviewed and is otherwise unremarkable. PMD: Dr. Garcia Onc: Dr. Vila Pharm: [facility] [place] pharmacy, [facility] PMH: as above PSH: hysterectomy, l knee replacement, 2 cataracts, neck cyst removal, 2 miscarriage Meds: as per MAR, reviewed Allergies: shellfish, naproxen, codeine, statins SHx: denies tobacco, ETOH or drug use FHx: non-contributory Present on Admission - Present on Admission Any Indicators Present on Admission: No Review of Systems - Review of Systems All systems: reviewed and no additional remarkable complaints except (as per HPI) Past Patient History - Infectious Disease Hx of Infectious Diseases: None - Past Medical History & Family History Past Medical History?: Yes Past Family History: Reviewed and not pertinent - Past Social History Smoking Status: Never Smoked Alcohol: None Drugs: Denies Home Situation {Lives}: Alone - CARDIAC Hx Cardiac Disorders: No Hx Pacemaker: No - PULMONARY Hx Respiratory Disorders: No - NEUROLOGICAL Hx Neurological Disorder: No - HEENT Hx HEENT Problems: Yes Hx Cataracts: Yes - RENAL Hx Chronic Kidney Disease: No - ENDOCRINE/METABOLIC Hx Endocrine Disorders: Yes Hx Hyperthyroidism: Yes - HEMATOLOGICAL/ONCOLOGICAL Hx Blood Transfusions: No Hx Cancer: Yes Hx Chemotherapy: Yes Other/Comment: multiple myeloma started chemo with Dr Vila 02/2017 - INTEGUMENTARY Hx Dermatological Problems: Yes Other/Comment: skin cancer - MUSCULOSKELETAL/RHEUMATOLOGICAL Hx Musculoskeletal Disorders: Yes Hx Arthritis: Yes - GASTROINTESTINAL Hx Gastrointestinal Disorders: No - GENITOURINARY/GYNECOLOGICAL Hx Genitourinary Disorders: No - PSYCHIATRIC Hx Emotional Abuse: No Hx Physical Abuse: No Hx Substance Use: No - SURGICAL HISTORY Hx Hysterectomy: Yes Other/Comment: knee replacement - ANESTHESIA Hx Anesthesia: Yes Hx Anesthesia Reactions: No Hx Malignant Hyperthermia: No Meds Allergies/Adverse Reactions: Allergies Allergy/AdvReac Type Severity Reaction Status Date / Time atorvastatin [From Lipitor] Allergy SWELLING Verified 01/27/18 18:36 codeine Allergy RASH Verified 01/27/18 18:36 naproxen Allergy RASH Verified 01/27/18 18:36 shellfish derived Allergy ANGIOEDEMA Verified 01/27/18 18:36 Physical Exam - Constitutional Appears: Well, Non-toxic, No Acute Distress - Head Exam Head Exam: ATRAUMATIC, NORMAL INSPECTION, NORMOCEPHALIC - Eye Exam Eye Exam: EOMI, Normal appearance, PERRL - ENT Exam ENT Exam: Mucous Membranes Moist, Normal Exam, Normal External Ear Exam - Neck Exam Neck exam: Positive for: Full Rom, Normal Inspection. Negative for: Lymphadenopathy, Tenderness Additional comments: horizontal scar from cyst removal - Respiratory Exam Respiratory Exam: Clear to Auscultation Bilateral, NORMAL BREATHING PATTERN. absent: Rales, Rhonchi, Wheezes, Respiratory Distress - Cardiovascular Exam Cardiovascular Exam: RRR, +S1, +S2. absent: JVD, Systolic Murmur - GI/Abdominal Exam GI & Abdominal Exam: Normal Bowel Sounds, Soft. absent: Distended, Tenderness - Extremities Exam Extremities exam: Positive for: full ROM, normal inspection, pedal pulses present. Negative for: pedal edema - Back Exam Back exam: NORMAL INSPECTION - Neurological Exam Neurological exam: Alert, CN II-XII Intact, Oriented x3 - Psychiatric Exam Psychiatric exam: Normal Affect, Normal Mood - Skin Skin Exam: Intact, Normal Color, Warm Results - Vital Signs Recent Vital Signs: Last Vital Signs Temp 98 F 01/27/18 14:16 Pulse 62 01/27/18 14:16 Resp 19 01/27/18 14:16 BP 122/72 01/27/18 14:16 Pulse Ox 99 01/27/18 14:16 - Labs Result Diagrams: 01/27/18 12:15 01/27/18 12:15 Labs: Laboratory Results - last 24 hr 01/27/18 01/27/18 01/27/18 12:15 12:15 12:15 WBC 5.0 RBC 3.99 Hgb 11.4 L Hct 35.3 L MCV 88.5 MCH 28.6 MCHC 32.3 RDW 15.9 H Plt Count 251 MPV 9.7 Gran % 55.0 Lymph % (Auto) 25.6 [place] % (Auto) 14.4 H Eos % (Auto) 4.0 Baso % (Auto) 1.0 Gran # 2.75 Lymph # (Auto) 1.3 [place] # (Auto) 0.7 H Eos # (Auto) 0.2 Baso # (Auto) 0.05 PT 11.4 INR 0.99 APTT 25.4 D-Dimer, Quantitative 451 H Sodium 140 Potassium 3.7 Chloride 110 H Carbon Dioxide 25 Anion Gap 9 L BUN 19 Creatinine 0.6 L Est GFR ( Amer) > 60 Est GFR (Non-Af Amer) > 60 Random Glucose 96 Calcium 8.9 Magnesium 1.9 Total Bilirubin 1.5 H AST 14 D ALT 26 Alkaline Phosphatase 53 Lactate Dehydrogenase 452 Total Creatine Kinase 55 Troponin I < 0.01 Total Protein 6.4 Albumin 3.2 Globulin 3.2 Albumin/Globulin Ratio 1.0 L Assessment & Plan - Assessment and Plan (Free Text) Assessment: 87 year old female with a PMH of a myeloma (dx 3 years ago, on chemo w/ Dr. Vila), skin CA, hyperthyroidism, arthritis who presents to the ED with complaints of substernal chest discomfort radiating to the left shoulder. Patient has low risk of cardiac events according to HEART score but will be observed overnight to r/o ACS due to malignancy and chemotherapy-induced cardiomyopathy. Plan: - observe on telemetry unit - Troponin q6 - A1C, TSH and lipid panel ordered - Cont ASA daily - Cont vit D and B12 - Cont Lopid - EKG AM - Echo ordered - HHD - PT eval - further recs per Dr. Garcia Case was reviewed and discussed with attending, Dr. Jose Jenkins PGY2 <Kareem Garcia S - Last Filed: 01/28/18 18:01> Results - Vital Signs Recent Vital Signs: Last Vital Signs Temp 97.1 F L 01/28/18 12:00 Pulse 65 01/28/18 12:00 Resp 19 11/13/18 12:00 BP 126/69 01/28/18 12:00 Pulse Ox 100 01/28/18 06:00 - Labs Result Diagrams: 01/27/18 12:15 01/27/18 12:15 Labs: Laboratory Results - last 24 hr 01/27/18 01/28/18 01/28/18 17:47 01:58 06:30 Hemoglobin A1c Lactate Dehydrogenase 377 340 Total Creatine Kinase 37 34 L Troponin I < 0.01 < 0.01 Triglycerides 88 Cholesterol 195 LDL Cholesterol Direct 71 HDL Cholesterol 86 H TSH 3rd Generation 01/28/18 01/28/18 06:30 06:30 Hemoglobin A1c 5.4 Lactate Dehydrogenase Total Creatine Kinase Troponin I Triglycerides Cholesterol LDL Cholesterol Direct HDL Cholesterol TSH 3rd Generation 1.00 Assessment & Plan - Assessment and Plan (Free Text) Plan: Pt seen and examined. I have reviewed the note of the medical claims representative and agree with it. I have discussed the assessment and plan with the resident. I have reviewed the patient's labs and medications. Pt with CP and trop has been negative. Pt does not have CP anymore. She is on ASA. She has myeloma and is seeing Hem/Onc.Pt is on Lopid for dyslipidemia. She will be discharged home and f/u as outpt.
--- NOTE | 2018-01-27 17:18 | CARD ---
APPROVED REPORT Date of service: 01/27/2018 EKG Measurement Heart [id number] <Conclusion> Normal sinus rhythm Normal ECG
[2018-01-27 18:20] LABS: TROPONIN I < 0.01 ng/mL
[2018-01-27] MEDS ORDERED: Influenza Vaccine 60 mcg/0.5 mL SYR (4YR UP) IM ONE (20:55)
[2018-01-27] MEDS ORDERED: Pneumococcal 23-Valent Vaccine IM ONE (20:55)
[2018-01-28 02:23] LABS: TROPONIN I < 0.01 ng/mL
[2018-01-28 06:06] VITALS: O2SAT 100
[2018-01-28 07:27] LABS: HDL CHOLESTEROL 86 mg/dL (29-60)
--- NOTE | 2018-01-28 07:28 | CP.PCM.DIS ---
<Mario Alberto Jenkins - Last Filed: 01/28/18 17:39> Provider - Provider Date of Admission: 01/27/18 12:52 Attending physician: Kareem Garcia MD Time Spent in preparation of Discharge (in minutes): 35 Diagnosis - Discharge Diagnosis (1) Atypical chest pain Status: Acute Hospital Course - Lab Results Lab Results: Most Recent Lab Values WBC 5.0 10^3/uL (4.5-11.0) 01/27/18 12:15 RBC 3.99 10^6/uL (3.5-6.1) 01/27/18 12:15 Hgb 11.4 g/dL (12.0-16.0) L 01/27/18 12:15 Hct 35.3 % (36.0-48.0) L 01/27/18 12:15 MCV 88.5 fl (80.0-105.0) 01/27/18 12:15 MCH 28.6 pg (25.0-35.0) 01/27/18 12:15 MCHC 32.3 g/dl (31.0-37.0) 01/27/18 12:15 RDW 15.9 % (11.5-14.5) H 01/27/18 12:15 Plt Count 251 10^3/uL (120.0-450.0) 01/27/18 12:15 MPV 9.7 fl (7.0-11.0) 01/27/18 12:15 Gran % 55.0 % (50.0-68.0) 01/27/18 12:15 Lymph % (Auto) 25.6 % (22.0-35.0) 01/27/18 12:15 Jessamine % (Auto) 14.4 % (1.0-6.0) H 01/27/18 12:15 Eos % (Auto) 4.0 % (1.5-5.0) 01/27/18 12:15 Baso % (Auto) 1.0 % (0.0-3.0) 01/27/18 12:15 Gran # 2.75 (1.4-6.5) 01/27/18 12:15 Lymph # (Auto) 1.3 (1.2-3.4) 01/27/18 12:15 Jessamine # (Auto) 0.7 (0.1-0.6) H 01/27/18 12:15 Eos # (Auto) 0.2 (0.0-0.7) 01/27/18 12:15 Baso # (Auto) 0.05 K/mm3 (0.0-2.0) 01/27/18 12:15 PT 11.4 SECONDS (9.4-12.5) 01/27/18 12:15 INR 0.99 01/27/18 12:15 APTT 25.4 Seconds (25.1-36.5) 01/27/18 12:15 D-Dimer, Quantitative 451 ng/mlDDU (0-243) H 01/27/18 12:15 Sodium 140 mmol/L (132-148) 01/27/18 12:15 Potassium 3.7 mmol/L (3.6-5.0) 01/27/18 12:15 Chloride 110 mmol/L (98-107) H 01/27/18 12:15 Carbon Dioxide 25 mmol/L (21-33) 01/27/18 12:15 Anion Gap 9 (10-20) L 01/27/18 12:15 BUN 19 mg/dL (7-21) 01/27/18 12:15 Creatinine 0.6 mg/dl (0.7-1.2) L 01/27/18 12:15 Est GFR ( Amer) > 60 01/27/18 12:15 Est GFR (Non-Af Amer) > 60 01/27/18 12:15 Random Glucose 96 mg/dL (70-110) 01/27/18 12:15 Calcium 8.9 mg/dL (8.4-10.5) 01/27/18 12:15 Magnesium 1.9 mg/dL (1.7-2.2) 01/27/18 12:15 Total Bilirubin 1.5 mg/dL (0.2-1.3) H 01/27/18 12:15 AST 14 U/L (14-36) D 01/27/18 12:15 ALT 26 U/L (7-56) 01/27/18 12:15 Alkaline Phosphatase 53 U/L (38-126) 01/27/18 12:15 Lactate Dehydrogenase 340 U/L (333-699) 01/28/18 01:58 Total Creatine Kinase 34 U/L (35-230) L 01/28/18 01:58 Troponin I < 0.01 ng/mL 01/28/18 01:58 Total Protein 6.4 g/dL (5.8-8.3) 01/27/18 12:15 Albumin 3.2 g/dL (3.0-4.8) 01/27/18 12:15 Globulin 3.2 gm/dL 01/27/18 12:15 Albumin/Globulin Ratio 1.0 (1.1-1.8) L 01/27/18 12:15 Triglycerides 88 mg/dL (35-160) 01/28/18 06:30 Cholesterol 195 mg/dL (130-200) 01/28/18 06:30 HDL Cholesterol 86 mg/dL (29-60) H 01/28/18 06:30 - Hospital Course Hospital Course: 87 year old female with a PMH of a myeloma (dx 3 years ago, on chemo w/ Dr. Vila), skin CA, hyperthyroidism, arthritis who was admitted for atypical chest pain radiating to her left shoulder, associated with dizziness and near syncope. The patient follows closely with Dr. Vila for her chemo drugs. Troponin x3 was negative, and patient's chest discomfort improved. A1c, TSH and lipid panel were obtained and were unremarkable. EKG was NSR w/ no changes, and CXR was unremarkable. Cardiology was consulted. Patient had echocardiogram done, but was not ready at time of discharge. Patient is feeling better and is asymptomatic on morning of discharge. She has appointment with Dr. Pritchett on 02/10 and will follow-up with Dr. Garcia and Dr. Vila as outpatient. She will be discharged home. Discharge Exam - Head Exam Head Exam: ATRAUMATIC, NORMAL INSPECTION, NORMOCEPHALIC - Eye Exam Eye Exam: EOMI, Normal appearance, PERRL Pupil Exam: NORMAL ACCOMODATION - ENT Exam ENT Exam: Mucous Membranes Moist, Normal Oropharynx - Neck Exam Neck exam: Full Rom, Normal Inspection - Respiratory Exam Respiratory Exam: NORMAL BREATHING PATTERN. absent: Rales, Rhonchi, Wheezes, Respiratory Distress, Stridor - Cardiovascular Exam Cardiovascular Exam: RRR, +S1, +S2. absent: Irregular Rhythm, JVD, Systolic Murmur - GI/Abdominal Exam GI & Abdominal Exam: Normal Bowel Sounds, Soft. absent: Distended, Guarding, Tenderness - Extremities Exam Extremities exam: full ROM, normal inspection Additional comments: ulnar deviation of hands (Arthritic) - Back Exam Back exam: NORMAL INSPECTION. absent: tenderness - Neurological Exam Neurological exam: Alert, CN II-XII Intact, Normal Gait, Oriented x3 - Psychiatric Exam Psychiatric exam: Normal Affect, Normal Mood - Skin Skin Exam: Normal Color, Warm Discharge Plan - Follow Up Plan Condition: GOOD Disposition: HOME/ ROUTINE Instructions: Chest Pain, Chest Pain (DC), Chest Pain (GEN) Additional Instructions: - please follow-up with Dr. Garcia within 2 weeks - please follow-up with Dr. Vila according to your appointments - please return to ER for evaluation if you have an recurrence of symptoms Referrals: Kareem Garcia MD [Family Provider] - Mario Alberto Vila MD [Medical Doctor] - <Kareem Garcia - Last Filed: 01/28/18 18:06> Provider - Provider Date of Admission: 01/27/18 12:52 Attending physician: Kareem Garcia MD Hospital Course - Lab Results Lab Results: Most Recent Lab Values WBC 5.0 10^3/uL (4.5-11.0) 01/27/18 12:15 RBC 3.99 10^6/uL (3.5-6.1) 01/27/18 12:15 Hgb 11.4 g/dL (12.0-16.0) L 01/27/18 12:15 Hct 35.3 % (36.0-48.0) L 01/27/18 12:15 MCV 88.5 fl (80.0-105.0) 01/27/18 12:15 MCH 28.6 pg (25.0-35.0) 01/27/18 12:15 MCHC 32.3 g/dl (31.0-37.0) 01/27/18 12:15 RDW 15.9 % (11.5-14.5) H 01/27/18 12:15 Plt Count 251 10^3/uL (120.0-450.0) 01/27/18 12:15 MPV 9.7 fl (7.0-11.0) 01/27/18 12:15 Gran % 55.0 % (50.0-68.0) 01/27/18 12:15 Lymph % (Auto) 25.6 % (22.0-35.0) 01/27/18 12:15 Jessamine % (Auto) 14.4 % (1.0-6.0) H 01/27/18 12:15 Eos % (Auto) 4.0 % (1.5-5.0) 01/27/18 12:15 Baso % (Auto) 1.0 % (0.0-3.0) 01/27/18 12:15 Gran # 2.75 (1.4-6.5) 01/27/18 12:15 Lymph # (Auto) 1.3 (1.2-3.4) 01/27/18 12:15 Jessamine # (Auto) 0.7 (0.1-0.6) H 01/27/18 12:15 Eos # (Auto) 0.2 (0.0-0.7) 01/27/18 12:15 Baso # (Auto) 0.05 K/mm3 (0.0-2.0) 01/27/18 12:15 PT 11.4 SECONDS (9.4-12.5) 01/27/18 12:15 INR 0.99 01/27/18 12:15 APTT 25.4 Seconds (25.1-36.5) 01/27/18 12:15 D-Dimer, Quantitative 451 ng/mlDDU (0-243) H 01/27/18 12:15 Sodium 140 mmol/L (132-148) 01/27/18 12:15 Potassium 3.7 mmol/L (3.6-5.0) 01/27/18 12:15 Chloride 110 mmol/L (98-107) H 01/27/18 12:15 Carbon Dioxide 25 mmol/L (21-33) 01/27/18 12:15 Anion Gap 9 (10-20) L 01/27/18 12:15 BUN 19 mg/dL (7-21) 01/27/18 12:15 Creatinine 0.6 mg/dl (0.7-1.2) L 01/27/18 12:15 Est GFR ( Amer) > 60 01/27/18 12:15 Est GFR (Non-Af Amer) > 60 01/27/18 12:15 Random Glucose 96 mg/dL (70-110) 01/27/18 12:15 Hemoglobin A1c 5.4 % (4.2-6.5) 01/28/18 06:30 Calcium 8.9 mg/dL (8.4-10.5) 01/27/18 12:15 Magnesium 1.9 mg/dL (1.7-2.2) 01/27/18 12:15 Total Bilirubin 1.5 mg/dL (0.2-1.3) H 01/27/18 12:15 AST 14 U/L (14-36) D 01/27/18 12:15 ALT 26 U/L (7-56) 01/27/18 12:15 Alkaline Phosphatase 53 U/L (38-126) 01/27/18 12:15 Lactate Dehydrogenase 340 U/L (333-699) 01/28/18 01:58 Total Creatine Kinase 34 U/L (35-230) L 01/28/18 01:58 Troponin I < 0.01 ng/mL 01/28/18 01:58 Total Protein 6.4 g/dL (5.8-8.3) 01/27/18 12:15 Albumin 3.2 g/dL (3.0-4.8) 01/27/18 12:15 Globulin 3.2 gm/dL 01/27/18 12:15 Albumin/Globulin Ratio 1.0 (1.1-1.8) L 01/27/18 12:15 Triglycerides 88 mg/dL (35-160) 01/28/18 06:30 Cholesterol 195 mg/dL (130-200) 01/28/18 06:30 LDL Cholesterol Direct 71 mg/dL (0-129) 01/28/18 06:30 HDL Cholesterol 86 mg/dL (29-60) H 01/28/18 06:30 TSH 3rd Generation 1.00 mIU/mL (0.46-4.68) 01/28/18 06:30 - Hospital Course Hospital Course: Pt seen and examined. I have reviewed the note of the medical review specialist and agree with it. I have discussed the assessment and plan with the resident. I have reviewed the patient's labs and medications. Pt with CP that has resolved. Pt has myeloma and is following with Heme/Onc. She had trop that were negative. EKG was not ishcemic. Echo was done.
[2018-01-28 07:39] LABS: LDL CHOLESTEROL 71 mg/dL (0-129)
[2018-01-28] MEDS ORDERED: Cholecalciferol 1,000 INTLU TAB PO SCH (10:00)
[2018-01-28 12:21] VITALS: BP 126/69; PULSE 65; RESP 19; TEMP 97.1
--- NOTE | 2018-01-28 20:11 | CON ---
DATE: 01/28/2018 CARDIOLOGY CONSULTATION HISTORY OF PRESENT ILLNESS: The patient is an 87-year-old woman, who presents with intermittent chest discomfort associated with diaphoresis. The patient's past medical history includes history of hypertension. No previous cardiac history in the past. She does admit to history of multiple myeloma with bony metastases, currently on oral medications. She denies diabetes mellitus. No history of smoking. SOCIAL HISTORY: The patient does not smoke, does not drink. REVIEW OF SYSTEMS: A 14-point review of systems is reviewed in detail. No cardiac symptomatology is noted. PHYSICAL EXAMINATION: VITAL SIGNS: Blood pressure 126/69, heart rate is in the 60s. NECK: Negative JVD. LUNGS: Without rales. HEART: S1, S2. EXTREMITIES: Without edema. LABORATORY DATA: The EKG is unremarkable. Troponins are negative x3. BUN and creatinine, unremarkable. Hemoglobin is 11.4. Echocardiogram reveals good LV function with no LV outflow obstruction. IMPRESSION: 1. Atypical chest pain, which is now resolved. 2. No evidence for acute coronary syndrome. 3. History of hypertension. 4. History of multiple myeloma. 5. Anemia. PLAN: Given these findings, the patient's cardiac status is stable. There is no evidence for acute coronary syndrome. We will arrange for an outpatient stress test, which can be done as an outpatient. Narayan Pritchett MD
--- NOTE | 2018-01-28 20:43 | CARD ---
APPROVED REPORT Date of service: 01/28/2018 EKG Measurement Heart [id number] <Conclusion> Normal sinus rhythm Possible Left atrial enlargement Borderline ECG
--- NOTE | 2018-01-28 21:09 | CARD ---
APPROVED REPORT Date of service: 01/28/2018 EXAM: Two-dimensional and M-mode echocardiogram with Doppler and color Doppler. INDICATION LV Function:SystolicDiastolic 2D DIMENSIONS Left Atrium (2D)3.6 (1.6-4.0cm)IVSd0.9 (0.7-1.1cm) LVDd4.6 (3.9-5.9cm)PWd1.0 (0.7-1.1cm) LVDs3.3 (2.5-4.0cm)FS (%) 27.9 % LVEF (%)54.2 (>50%) M-Mode DIMENSIONS Aortic Root2.10 (2.2-3.7cm)Aortic Cusp Exc.1.50 (1.5-2.0cm) Aortic Valve AoV Peak Hlflwaoo819.0cm/Allie Peak GR.11mmHg Mitral Valve MV E Nbtvvpxt82.7cm/sMV A Koumuwsj70.0cm/sE/A ratio1.0 TDI E/Lateral E'0.0E/Medial E'0.0 Tricuspid Valve TR Peak Ujzbsiop166to/sRAP [id number] Peak Gr.35mmHg [id number] LEFT VENTRICLE The left ventricle is normal size. There is borderline concentric left ventricular hypertrophy. The left ventricular function is normal. The left ventricular ejection fraction is within the normal range. There is normal LV segmental wall motion. Transmitral Doppler flow pattern is Grade I-abnormal relaxation pattern. RIGHT VENTRICLE The right ventricle is normal size. There is normal right ventricular wall thickness. The right ventricular systolic function is normal. ATRIA The left atrium is borderline dilated. The right atrium size is normal. AORTIC VALVE The aortic valve is mildly thickened. No aortic regurgitation is present. There is no aortic valvular stenosis. MITRAL VALVE The mitral valve is mildly thickened. Mitral regurgitation is mild. There is no mitral valve stenosis. TRICUSPID VALVE There is mild tricuspid regurgitation. There is mild to moderate pulmonary hypertension. PULMONIC VALVE There is trace pulmonic valvular regurgitation. GREAT VESSELS The aortic root is normal in size. The IVC is normal in size and collapses >50% with inspiration. <Conclusion> The left ventricle is normal size. There is borderline concentric left ventricular hypertrophy. The left ventricular function is normal. The left ventricular ejection fraction is within the normal range. There is normal LV segmental wall motion. Transmitral Doppler flow pattern is Grade I-abnormal relaxation pattern. Mitral regurgitation is mild. There is mild tricuspid regurgitation. There is mild to moderate pulmonary hypertension.
== END 2018-01-28 14:28 | disposition home or self-care (01) ==
LOC: ED 11:36 → ERH 12:52 → 2RNO 14:26
PROVIDERS: ADMIT Internal Medicine Nephrology; ATTEND Internal Medicine Nephrology
DX: R07.89 Other chest pain (principal); C90.00 Multiple myeloma not having achieved remission; D64.9 Anemia, unspecified; I10 Essential (primary) hypertension; Z79.82 Long term (current) use of aspirin; Z85.828 Personal history of other malignant neoplasm of skin; Z90.710 Acquired absence of both cervix and uterus; Z96.652 Presence of left artificial knee joint
CPT/HCPCS: 36415; 71045; 80053; 80061; 82550; 83036; 83615; 83735; 84443; 84484; 85025; 85378; 85610; 85730; 93005; 93306; 99285; G0378

== ENCOUNTER 2018-02-20 06:31 | Day surgery (SDC) | payer MEDICARE, BC ==
[2018-02-14 10:07] VITALS: BMI 19.3
[2018-02-20 07:21] LABS: BASO # 0.08 K/mm3 (0.0-2.0); BASO % 2.4 % (0.0-3.0); EOS # 0.1 (0.0-0.7); EOS % 2.4 % (1.5-5.0); GRAN # 1.67 (1.4-6.5); GRAN % 50.8 % (50.0-68.0); HEMOGLOBIN 11.9 g/dL (12.0-16.0); LYMPH # 1.2 (1.2-3.4); LYMPH % 37.7 % (22.0-35.0); MEAN CELL VOLUME 89.1 fl (80.0-105.0); MEAN CORPUSCULAR HEMOGLOBIN 28.2 pg (25.0-35.0); MEAN CORPUSCULAR HGB CONC 31.6 g/dl (31.0-37.0); MEAN PLATELET VOLUME 9.2 fl (7.0-11.0); MONO # 0.2 (0.1-0.6); MONO % 6.7 % (1.0-6.0); RBC 4.22 10^6/uL (3.5-6.1); RED CELL DISTRIBUTION WIDTH 15.6 % (11.5-14.5); WHITE BLOOD COUNT 3.3 10^3/uL (4.5-11.0)
[2018-02-20 07:24] VITALS: RESP 18
[2018-02-20 07:28] LABS: INR 0.94; PARTIAL THROMBOPLASTIN TIME 28.1 Seconds (25.1-36.5); PROTHROMBIN TIME 10.8 SECONDS (9.4-12.5)
[2018-02-20 07:34] LABS: BLOOD UREA NITROGEN 26 mg/dL (7-21); CALCIUM 9.3 mg/dL (8.4-10.5); GFR NON-AFRICAN AMERICAN > 60; HDL CHOLESTEROL 99 mg/dL (29-60)
[2018-02-20 07:40] LABS: LDL CHOLESTEROL 81 mg/dL (0-129)
[2018-02-20] MEDS ORDERED: Famotidine 20mg/50ml 20 MG/50 ML BAG IVPB ONE (07:51)
[2018-02-20] MEDS ORDERED: DiphenhydrAMINE 50 mg/ml Inj ONE (07:51)
[2018-02-20] MEDS ORDERED: Phenylephrine 10 mg/ml Inj ONE (07:53)
[2018-02-20] MEDS ORDERED: Iodixanol 320 MG/ML 100 ML BOTTLE IV ONE (07:54)
[2018-02-20] MEDS ORDERED: Iodixanol 320 MG/ML 200 ML BOTTLE IV ONE (07:54)
[2018-02-20] MEDS ORDERED: Iohexol 350mgl/ml 50 ML ONE (07:54)
[2018-02-20] MEDS ORDERED: Nitroglycerin 50mg in D5W 0 MG/0 ML BOTTLE IV ONE (07:54)
[2018-02-20] MEDS ORDERED: Lidocaine 2% Inj (20ml) ONE (07:55)
[2018-02-20] MEDS ORDERED: Midazolam 2 MG/2 ML VIAL ONE (08:09)
[2018-02-20] MEDS ORDERED: Sodium Chloride 0.9% 1,000 ML IV SCH (09:00)
[2018-02-20 09:22] VITALS: TEMP 97.6
[2018-02-20 11:09] VITALS: O2SAT 96
[2018-02-20 11:10] VITALS: PULSE 72
[2018-02-20 12:19] VITALS: BP 126/67
--- NOTE | 2018-02-20 19:42 | OP ---
PROCEDURE DATE: 02/20/2018 HISTORY: The patient is an 87-year-old woman who suffers from hypercholesterolemia, who presents with an abnormal stress test. Because of this, cardiac catheterization was recommended. The patient has allergies to multiple agents and foods. She was pretreated with steroids and an H2 bubba. Cardiac catheterization was performed. PROCEDURE: Left heart catheterization with coronary angiography, left ventriculogram, and supraaortic valvular injection. SURGEON: Naaryan Pritchett MD DESCRIPTION OF PROCEDURE: The right femoral artery was cannulated with a 6-Singaporean sheath. There were no complications. I performed moderate sedation, which included the presence of an independent trained observer that assisted in monitoring the patient's level of consciousness and physiologic status. After administration of Versed and fentanyl, my intraservice time was 15 minutes. Findings on catheterization revealed a right dominant circulation. The RCA was a large vessel with intimal irregularities without critical lesions. The RCA gave off a large posterolateral branch that fed the posterior wall of the heart. The left main artery was unremarkable. The LAD and diagonal vessels revealed diffuse atherosclerosis without critical lesions. There was a large diagonal vessel that fed a large part of the high lateral wall. No circumflex artery could be identified. LV function was viewed in the NORMAN projection. In the NORMAN projection, wall motion is within normal limits. Estimated ejection fraction is 65%. Supraaortic valvular injection was performed. There was no aortic insufficiency. No anomalous takeoff of the circumflex artery could be found. Angio-Seal was used to close the femoral artery site. The patient tolerated the procedure well. In summary, the procedure revealed a right dominant circulation in the RCA. There was diffuse atherosclerosis without critical lesions. No circumflex artery could be identified. The posterior wall is fed by a large posterolateral branch and a high lateral diagonal vessel. LV function is normal. No aortic insufficiency. Given these findings, the patient's treatment will be continued, cardiac risk reduction program. Narayan Pritchett MD
== END 2018-02-20 15:00 | disposition home or self-care (01) ==
LOC: CATH 06:31
PROVIDERS: ATTEND Internal Medicine Cardiovascular Disease
DX: I25.10 Atherosclerotic heart disease of native coronary artery without angina pectoris (principal); E78.00 Pure hypercholesterolemia, unspecified; C90.00 Multiple myeloma not having achieved remission
CPT/HCPCS: 36415; 80048; 80061; 85025; 85610; 85730; 86850; 86900; 93458; 93567; 99152; C1760; C1769; C2629; J1200; J1644; J2250; J2930; J3010; J7030; Q9966; Q9967

== ENCOUNTER 2018-03-26 10:03 | Outpatient (CLI) | payer MEDICARE, BC | END 2018-03-26 10:04 | disposition home or self-care (01) | LOC: RAD 10:03 ==

== ENCOUNTER 2018-05-26 08:52 | Emergency (ER) | payer MEDICARE, BC ==
[2018-05-26 08:52] VITALS: BMI 19.3
[2018-05-26 09:22] VITALS: RESP 18
[2018-05-26] MEDS ORDERED: Lidocaine 5% Patch TD STA (09:47)
--- NOTE | 2018-05-26 10:07 | ED PDOC ---
Arrival/HPI - General Chief Complaint: Back Pain Historian: Patient - History of Present Illness Narrative History of Present Illness (Text): 05/26/18 10:02 87 y/o F, with a PMH of a myeloma (dx 3 years ago, on chemo w/ Dr. Vila), skin CA, hyperthyroidism, and arthritis, presents to the ED for evaluation of right sided hip pain radiating to right lower back since Saturday. Patient informs mechanical slip and fall on her right side last week without any immediate discomfort or trauma at the time. Patient denies any head injury or loss of consciousness during the episode. Patient informs onset of symptoms 2 days ago, mildly improved after Tramadol at home. Patient informs worsening symptoms this morning associated with rash to the area, prompting her to present to the ED for evaluation. Patient denies any other associated somatic complaints. Patient denies any fevers, chills, headache, dizziness, chest pain, shortness of breath, dyspnea on exertion, cough, abdominal pain, nausea, vomiting, diarrhea, urinary symptoms, difficulty ambulating, neck pain, or any other complaints. PMD: Dr. Asher Oncologist: Dr. Vila Time/Duration: < week Symptom Onset: Gradual Symptom Course: Unchanged Activities at Onset: Light Context: Home Past Medical History - Provider Review Nursing Documentation Reviewed: Yes - Infectious Disease Hx of Infectious Diseases: None - Cardiac Hx Pacemaker: No - Pulmonary Hx Respiratory Disorders: Yes Hx Pneumonia: Yes - Neurological Hx Neurological Disorder: Yes Hx Dizziness: Yes - HEENT Hx HEENT Disorder: Yes Hx Cataracts: Yes - Renal Hx Renal Disorder: No - Endocrine/Metabolic Hx Endocrine Disorders: Yes Hx Hyperthyroidism: Yes (CYST REMOVED IN THE THYROID) - Hematological/Oncological Hx Blood Transfusions: No - Integumentary Hx Dermatological Disorder: Yes Other/Comment: skin cancer - Musculoskeletal/Rheumatological Hx Musculoskeletal Disorders: Yes (BACK PAIN AT TIMES) - Gastrointestinal Hx Gastrointestinal Disorders: Yes (APPENDECTOMY,) Hx Gall Bladder Disease: Yes (CHOLECYSTECTOMY) - Genitourinary/Gynecological Hx Genitourinary Disorders: No - Psychiatric Hx Emotional Abuse: No Hx Physical Abuse: No Hx Substance Use: No - Past Surgical History Past Surgical History: No Previous - Surgical History Hx Appendectomy: Yes Hx Cholecystectomy: Yes Hx Hysterectomy: Yes Other/Comment: knee replacement - Anesthesia Hx Anesthesia: Yes Hx Anesthesia Reactions: No Hx Malignant Hyperthermia: No - Suicidal Assessment Feels Threatened In Home Enviroment: No Family/Social History - Physician Review Nursing Documentation Reviewed: Yes Family/Social History: Unknown Family HX Smoking Status: Never Smoked Hx Alcohol Use: No Hx Substance Use: No Allergies/Home Meds Allergies/Adverse Reactions: Allergies atorvastatin [From Lipitor] Allergy (Verified 02/14/18 10:07) SWELLING codeine Allergy (Verified 02/14/18 10:07) RASH naproxen Allergy (Verified 02/14/18 10:07) RASH shellfish derived Allergy (Verified 02/14/18 10:07) ANGIOEDEMA Home Medications: Home Meds Medication Instructions Recorded Confirmed traMADol [Ultram] 50 mg PO Q6 PRN 12/03/16 02/20/18 Gemfibrozil [Lopid] 1 tab PO DAILY 05/08/17 02/20/18 Bortezomib [Velcade] 3.5 mg SQ Q2W 05/13/17 02/20/18 Cholecalciferol [Vitamin D 1000 IU] 1 tab PO DAILY 05/13/17 02/20/18 Cyanocobalamin (Vitamin B-12) 1 tab PO DAILY 05/13/17 02/20/18 [Vitamin B-12] Lenalidomide [Revlimid] 10 mg PO Q21D 05/13/17 02/20/18 Aspirin [Adult Low Dose Aspirin EC] 81 mg PO DAILY 01/27/18 02/20/18 Calcium Carbonate [Calcium] 500 mg PO DAILY 02/14/18 02/20/18 Dexamethasone [Decadron] 5 tab PO SAT 02/14/18 02/20/18 Review of Systems - Physician Review All systems were reviewed & negative as marked: Yes - Review of Systems Constitutional: absent: Fevers Respiratory: absent: SOB, Cough Cardiovascular: absent: Chest Pain Gastrointestinal: absent: Abdominal Pain, Diarrhea, Nausea, Vomiting Genitourinary Female: absent: Dysuria, Urine Output Changes Musculoskeletal: Back Pain. absent: Neck Pain Skin: Rash Neurological: absent: Headache, Dizziness Psychiatric: absent: Anxiety Physical Exam Vital Signs Reviewed: Yes Vital Signs Temp Pulse Resp BP Pulse Ox 05/26/18 08:53 97.8 F 57 L 18 142/82 100 Temperature: Afebrile Blood Pressure: Normal Pulse: Regular Respiratory Rate: Normal Appearance: Positive for: Well-Appearing, Non-Toxic, Comfortable Pain Distress: None Mental Status: Positive for: Alert and Oriented X 3 - Systems Exam Head: Present: Atraumatic, Normocephalic Pupils: Present: PERRL Extroacular Muscles: Present: EOMI Conjunctiva: Present: Normal Mouth: Present: Moist Mucous Membranes Respiratory/Chest: Present: Clear to Auscultation, Good Air Exchange. No: Respiratory Distress, Accessory Muscle Use Cardiovascular: Present: Regular Rate and Rhythm, Normal S1, S2. No: Murmurs Abdomen: No: Tenderness, Distention, Peritoneal Signs Back: Present: Paraspinal Tenderness (right sided ), Other (tenderness to palpation ot right hip) Upper Extremity: Present: Normal Inspection. No: Cyanosis, Edema, Deformity Lower Extremity: Present: Normal Inspection, NORMAL PULSES, Normal ROM (Able to flex and extend both knees), Neurovascularly Intact, Other (Limb length equal bilaterally). No: Edema, Deformity Neurological: Present: GCS=15, Speech Normal Skin: Present: Warm, Dry, Rashes (unilateral nonblanching vesicular rash to right hip, not crossing the midline), Normal Color Psychiatric: Present: Alert, Oriented x 3, Normal Insight, Normal Concentration Medical Decision Making ED Course and Treatment: 05/26/18 09:47 Impression: 87 year old female presents to the ED for evaluation of right sided back pain and right hip pain s/p mechanical fall. Differential Diagnosis included but are not limited to: -- Fracture -- Shingles Plan: -- Lidoderm -- Tylenol -- Zovirax -- X-ray of right hip -- X-ray of Lumbar Spine -- X-ray of Ribs -- Reassess and disposition Prior Visits: Notes and results from previous visits were reviewed. Progress Notes: 05/26/18 11:47 Patient reevaluated and feels better. She reports alleviation in her pain. XR films reviewed with patient noted to have loss of vertebral height which patient states she was previously aware of. She is advised to take her medication as prescribed and to follow up with her PCP. She is stable for discharge. - RAD Interpretation Radiology Orders: 05/26/18 09:52 HIP MIN 2V W/ PELVIS RT [RAD] Stat LS SPINE WITH OBL > 18 YRS OLD [RAD] Stat 05/26/18 09:57 RIBS RIGHT & PA CHEST [RAD] Stat - Medication Orders Current Medication Orders: Discontinued Medications Acetaminophen (Tylenol 325mg Tab) 650 mg PO STAT STA Stop: 05/26/18 09:48 Last Admin: 05/26/18 09:57 Dose: 650 mg MAR Pain/Vitals Document 05/26/18 09:57 OCS (Rec: 05/26/18 09:57 OCS [id number]) Pain Reassessment Is This A Pain ReAssessment? No Sleep Is patient sleeping during reassessment? No Presence of Pain Presence of Pain Yes Location Left, Right or Bilateral Right Upper or Lower Lower Pain Location Body Site Back Description Intermittent Pain Behavior Irritability Facial Grimacing Aggravating Factors ADL's Acyclovir (Zovirax) 400 mg PO ONCE ONE; Protocol Stop: 05/26/18 09:58 Lidocaine (Lidoderm) 1 ea TD STAT STA Stop: 05/26/18 09:48 Last Admin: 05/26/18 09:57 Dose: 1 ea MAR Transdermal Patch Site Document 05/26/18 09:57 OCS (Rec: 05/26/18 09:57 OCS [id number]) Transdermal Patch Site Transdermal Patch Site Right Lower Back - Scribe Statement The provider has reviewed the documentation as recorded by the Scribe Marcel Galaviz. All medical record entries made by the Scribe were at my direction and personally dictated by me. I have reviewed the chart and agree that the record accurately reflects my personal performance of the history, physical exam, medical decision making, and the department course for this patient. I have also personally directed, reviewed, and agree with the discharge instructions and disposition. Disposition/Present on Arrival - Present on Arrival Any Indicators Present on Arrival: No History of DVT/PE: No History of Uncontrolled Diabetes: No Urinary Catheter: No History of Decub. Ulcer: No History Surgical Site Infection Following: None - Disposition Have Diagnosis and Disposition been Completed?: Yes Diagnosis: Hip pain, Fall, Shingles rash Disposition: HOME/ ROUTINE Disposition Time: 11:55 Patient Plan: Discharge Condition: STABLE Discharge Instructions (ExitCare): Shingles (DC), Hip Pain (DC), Shingles (ED) Print Language: V[place] Additional Instructions: All medical record entries made by the Scribe were at my direction and personally dictated by me. I have reviewed the chart and agree that the record accurately reflects my personal performance of the history, physical exam, medical decision making, and the department course for this patient. I have also personally directed, reviewed, and agree with the discharge instructions and disposition. Please follow up with your PCP Prescriptions: Acetaminophen [Tylenol] 650 mg PO Q4H #12 capsule Acyclovir 400 mg PO TID 10 Days #30 tablet Lidocaine 5% [Lidoderm] 1 each TP Q12 #6 patch Referrals: Lobito Asher MD [Primary Care Provider] - Follow up with primary Mario Alberto Vila MD [Medical Doctor] - Follow up with primary Forms: [employer] (French)
[2018-05-26 12:23] VITALS: BP 132/72; PULSE 61; TEMP 98; O2SAT 97
--- NOTE | 2018-05-26 13:50 | RAD ---
Date of service: 05/26/2018 PROCEDURE: Radiographs of the Lumbar Spine. HISTORY: Pain s/p falling COMPARISON: No prior. FINDINGS: BONES: No acute compression fractures retropulsed fragments. Vertebral bodies exhibit normal stature. There is mild anterior subluxation of L4 over L5. Additionally, there is a dextroscoliosis centered at the L3-L4 level. DISC SPACES: Multilevel degenerative spondylosis. Changes include varying degrees significant disc space narrowing endplate eburnation and anterolateral as well as smaller posterior osteophyte formation. Facets are hypertrophic L5-S1 through the L1-L2 levels in decreasing order of severity OTHER FINDINGS: None. IMPRESSION: No acute fractures. Multilevel degenerative spondylosis with scoliotic deformity as detailed above.
--- NOTE | 2018-05-26 14:22 | RAD ---
Date of service: 05/26/2018 PROCEDURE: Pelvis and right hip. HISTORY: Status post fall with pain. COMPARISON: Comparison made with prior radiographs of the pelvis and right hip dated 04/02/2016. TECHNIQUE: AP view the pelvis and AP/frogleg lateral views of the right hip performed. FINDINGS: No evidence of displaced fracture nor dislocation. The osseous structures appear intact. There appears to mild joint space narrowing. Slight spurring of the superolateral margins of both acetabular roofs. Degenerative spondylosis lower lumbosacral spine. IMPRESSION: No definitive evidence of displaced fracture nor dislocation.
--- NOTE | 2018-05-26 15:58 | RAD ---
Date of service: 05/26/2018 PROCEDURE: Radiographs of the Chest and Right Ribs. HISTORY: right sided chest pain COMPARISON: Comparison chest 03/26/2018 heart size upper limits TECHNIQUE: Frontal radiograph of the chest and multiple oblique radiographs of the right ribs were obtained. FINDINGS: RIGHT RIBS: No definitive radiographic evidence of acute right-sided rib fracture however chronic right posterolateral 7th, 8th and 9th ribs fracture deformities are present. Or focal lesion visualized. LUNGS: There appears to be some minimal bibasilar atelectasis however lung dai otherwise clear. Slight elevation right hemidiaphragm possibly due to eventration. PLEURA: No pneumothorax or pleural fluid. Minor biapical pleural thickening. CARDIOVASCULAR: Are appears mildly enlarged. Mild-moderate aortic atherosclerotic calcification present OTHER FINDINGS: Mild multilevel degenerative spondylosis of the thoracic spine. There is mild levoscoliosis centered at the thoracolumbar junction. IMPRESSION: No evidence of acute right-sided rib fracture however redemonstrated old healed fracture deformities of the right posterolateral 7th, 8th and 9th ribs.. No evidence of pneumothorax. Mild biapical pleural thickening and minimal bibasilar atelectasis..
== END 2018-05-26 12:23 | disposition home or self-care (01) ==
LOC: ED 08:52
DX: M25.551 Pain in right hip (principal); B02.9 Zoster without complications; W01.0XXA Fall on same level from slipping, tripping and stumbling without subsequent striking against object, initial encounter
CPT/HCPCS: 71101; 72110; 73502; 99283; J8499

== ENCOUNTER 2018-05-28 12:44 | Emergency (ER) | payer MEDICARE, BC ==
[2018-05-28 12:46] VITALS: BMI 19.3
[2018-05-28 13:15] VITALS: BP 111/70; PULSE 89; RESP 16; TEMP 98.5; O2SAT 98
--- NOTE | 2018-05-28 13:56 | ED PDOC ---
Arrival/HPI - General Chief Complaint: Abnormal Skin Integrity Time Seen by Provider: 05/28/18 13:27 Historian: Patient - History of Present Illness Narrative History of Present Illness (Text): 05/28/18 13:56 87 year old female, whose past medical history includes myeloma (diagnosed 3 years ago, on chemo w/ Dr. Vila), skin CA, hyperthyroidism, and arthritis, presents to the emergency department complaining of shingles for the past couple of days. Patient states she has a rash over her right flank area with associated pain to the back. Patient has been taking Tylenol with some relief. She notes she was seen here in the hospital on 05/26/18 where she was informed she had shingles and was prescribed Acyclovir, which she has been taking as recommended. Patient denies any fevers, chills, headache, dizziness, chest pain, shortness of breath, dyspnea on exertion, cough, abdominal pain, nausea, vomiting, diarrhea, urinary symptoms, difficulty ambulating, neck pain, or any other complaints. PMD: Dr. Asher Oncologist: Dr. Vila Time/Duration: < week Symptom Onset: Gradual Symptom Course: Unchanged Activities at Onset: Light Context: Home Past Medical History - Provider Review Nursing Documentation Reviewed: Yes - Infectious Disease Hx of Infectious Diseases: None - Cardiac Hx Pacemaker: No - Pulmonary Hx Respiratory Disorders: Yes Hx Pneumonia: Yes - Neurological Hx Neurological Disorder: Yes Hx Dizziness: Yes - HEENT Hx HEENT Disorder: Yes Hx Cataracts: Yes - Renal Hx Renal Disorder: No - Endocrine/Metabolic Hx Endocrine Disorders: Yes Hx Hyperthyroidism: Yes (CYST REMOVED IN THE THYROID) - Hematological/Oncological Hx Blood Disorders: Yes Hx Cancer: Yes - Integumentary Hx Dermatological Disorder: Yes Hx Squamous Cell Carcinoma: Yes Other/Comment: SHINGLES - Musculoskeletal/Rheumatological Hx Musculoskeletal Disorders: Yes Hx Back Pain: Yes - Gastrointestinal Hx Gastrointestinal Disorders: Yes (APPENDECTOMY,) Hx Gall Bladder Disease: Yes (CHOLECYSTECTOMY) - Genitourinary/Gynecological Hx Genitourinary Disorders: No - Psychiatric Hx Psychophysiologic Disorder: No Hx Substance Use: No - Past Surgical History Past Surgical History: No Previous - Surgical History Hx Appendectomy: Yes Hx Cholecystectomy: Yes Hx Hysterectomy: Yes Hx Orthopedic Surgery: Yes Other/Comment: knee replacement - Anesthesia Hx Anesthesia: Yes Hx Anesthesia Reactions: No Hx Malignant Hyperthermia: No - Suicidal Assessment Feels Threatened In Home Enviroment: No Family/Social History - Physician Review Nursing Documentation Reviewed: Yes Family/Social History: No Known Family HX Smoking Status: Never Smoked Hx Alcohol Use: No Hx Substance Use: No Allergies/Home Meds Allergies/Adverse Reactions: Allergies atorvastatin [From Lipitor] Allergy (Verified 05/28/18 13:08) SWELLING codeine Allergy (Verified 05/28/18 13:08) RASH naproxen Allergy (Verified 05/28/18 13:08) RASH shellfish derived Allergy (Verified 05/28/18 13:08) ANGIOEDEMA Home Medications: Home Meds Medication Instructions Recorded Confirmed traMADol [Ultram] 50 mg PO Q6 PRN 12/03/16 02/20/18 Gemfibrozil [Lopid] 1 tab PO DAILY 05/08/17 02/20/18 Bortezomib [Velcade] 3.5 mg SQ Q2W 05/13/17 02/20/18 Cholecalciferol [Vitamin D 1000 IU] 1 tab PO DAILY 05/13/17 02/20/18 Cyanocobalamin (Vitamin B-12) 1 tab PO DAILY 05/13/17 02/20/18 [Vitamin B-12] Lenalidomide [Revlimid] 10 mg PO Q21D 05/13/17 02/20/18 Aspirin [Adult Low Dose Aspirin EC] 81 mg PO DAILY 01/27/18 02/20/18 Calcium Carbonate [Calcium] 500 mg PO DAILY 02/14/18 02/20/18 Dexamethasone [Decadron] 5 tab PO SAT 02/14/18 02/20/18 Review of Systems - Physician Review All systems were reviewed & negative as marked: Yes - Review of Systems Constitutional: absent: Fevers Physical Exam - Physical Exam Narrative Physical Exam (Text): 05/28/18 13:54 Constitutional: No acute distress. Head: Normocephalic. Atraumatic. Eyes: PERRL. ENT: Moist mucous membranes. Neck: Supple. Cardiovascular: Regular rate. Chest: No tenderness. Respiratory: Clear to auscultation bilaterally. GI: Soft. Nontender. Nondistended. Back: No CVA tenderness. Musculoskeletal: No tenderness or swelling of extremities. Skin: Scattered vesicular rash over the right flank, not crossing the midline, clustered, some of which are scabbed. Neurologic: Alert, no focal deficit. Vital Signs Reviewed: Yes Vital Signs Temp Pulse Resp BP Pulse Ox 05/28/18 13:09 98.5 F 89 16 111/70 98 Temperature: Afebrile Blood Pressure: Normal Pulse: Regular Respiratory Rate: Normal Appearance: Positive for: Well-Appearing, Non-Toxic, Comfortable Pain Distress: None Mental Status: Positive for: Alert and Oriented X 3 Medical Decision Making ED Course and Treatment: 05/28/18 13:55 Impression: 87 year old female, who presents to the emergency department complaining of shingles. Plan: -- Reassess and disposition Prior Visits: Notes and results from previous visits were reviewed. Patient was seen on 05/26/18 and was given Acyclovir. Progress Notes: Patient states pain is improving and rash has not moved to any other location. Instructed to return for other involved dermatomes or fever. Otherwise, continue pain control and f/u PMD. - Scribe Statement The provider has reviewed the documentation as recorded by the Scribe Evie Knight Provider Scribe Attestation: All medical record entries made by the Scribe were at my direction and personally dictated by me. I have reviewed the chart and agree that the record accurately reflects my personal performance of the history, physical exam, medical decision making, and the department course for this patient. I have also personally directed, reviewed, and agree with the discharge instructions and disposition. Disposition/Present on Arrival - Present on Arrival Any Indicators Present on Arrival: No History of DVT/PE: No History of Uncontrolled Diabetes: No Urinary Catheter: No History of Decub. Ulcer: No History Surgical Site Infection Following: None - Disposition Have Diagnosis and Disposition been Completed?: Yes Diagnosis: Shingles Disposition: HOME/ ROUTINE Disposition Time: 14:13 Patient Plan: Discharge Condition: GOOD Discharge Instructions (ExitCare): Shingles Prescriptions: Acyclovir [Zovirax] 800 mg PO 5XD #35 tab Lidocaine [Lidocaine Pain Relief] 1 each TP DAILY #14 adh..patch Referrals: Lobito Asher MD [Primary Care Provider] - Follow up with primary Forms: [employer] [facility] (Malay)
== END 2018-05-28 14:13 | disposition home or self-care (01) ==
LOC: ED 12:44
DX: B02.9 Zoster without complications (principal)

== ENCOUNTER 2018-06-15 14:10 | Observation (INO) | payer MEDICARE, BC ==
--- NOTE | 2018-06-15 14:53 | ED PDOC ---
Arrival/HPI - General Chief Complaint: Trauma Historian: Patient - History of Present Illness Narrative History of Present Illness (Text): 06/15/18 14:50 A 87 year old female, whose past medical history includes shingles (diagnosed 3 weeks), presents to the emergency department complaining of injury s/p fall. Patient reports today 30 minutes [employer], patient began experiencing dizziness and fell face forward, hitting her face to the ground and injury her nose. Patient is uncertain what caused her dizziness. Also, she mentions she was diagnosed with shingles 3 weeks ago and mentioned it radiated from her right-side abdomen to her back. Patient notes also experiencing slight shortness of breath, some chest pain when breathing in, palpitations, and some back pain as well; however she denies any other complaints at this time. Also, patient mentions taking Oxycodone a few hours ago, as she has been prescribed Oxycodone since 6 days ago. Past Medical History - Provider Review Nursing Documentation Reviewed: Yes - Infectious Disease Hx of Infectious Diseases: None - Cardiac Hx Pacemaker: No - Pulmonary Hx Respiratory Disorders: Yes Hx Pneumonia: Yes - Neurological Hx Neurological Disorder: Yes Hx Dizziness: Yes - HEENT Hx HEENT Disorder: Yes Hx Cataracts: Yes - Renal Hx Renal Disorder: No - Endocrine/Metabolic Hx Endocrine Disorders: Yes Hx Hyperthyroidism: Yes (CYST REMOVED IN THE THYROID) - Hematological/Oncological Hx Blood Transfusions: No - Integumentary Other/Comment: SHINGLES - Musculoskeletal/Rheumatological Hx Musculoskeletal Disorders: Yes - Gastrointestinal Hx Gastrointestinal Disorders: Yes (APPENDECTOMY,) Hx Gall Bladder Disease: Yes (CHOLECYSTECTOMY) - Genitourinary/Gynecological Hx Genitourinary Disorders: No - Psychiatric Hx Emotional Abuse: No Hx Physical Abuse: No Hx Substance Use: No - Past Surgical History Past Surgical History: No Previous - Surgical History Hx Appendectomy: Yes Hx Cholecystectomy: Yes Hx Hysterectomy: Yes Other/Comment: knee replacement - Anesthesia Hx Anesthesia: Yes Hx Anesthesia Reactions: No Hx Malignant Hyperthermia: No - Suicidal Assessment Feels Threatened In Home Enviroment: No Family/Social History - Physician Review Nursing Documentation Reviewed: Yes Family/Social History: No Known Family HX Smoking Status: Never Smoked Hx Alcohol Use: No Hx Substance Use: No Allergies/Home Meds Allergies/Adverse Reactions: Allergies atorvastatin [From Lipitor] Allergy (Verified 06/15/18 21:09) SWELLING codeine Allergy (Verified 06/15/18 21:09) RASH naproxen Allergy (Verified 06/15/18 21:09) RASH shellfish derived Allergy (Verified 06/15/18 21:09) ANGIOEDEMA Home Medications: Home Meds Medication Instructions Recorded Confirmed traMADol [Ultram] 50 mg PO Q6 PRN 12/03/16 06/15/18 Lenalidomide [Revlimid] 10 mg PO Q21D 05/13/17 06/15/18 Review of Systems - Review of Systems Constitutional: absent: Fevers Eyes: absent: Vision Changes ENT: Other (nasal pain). absent: Hearing Changes Respiratory: SOB. absent: Cough Cardiovascular: Chest Pain, Syncope. absent: Palpitations, Edema, Calf Pain Gastrointestinal: absent: Abdominal Pain Genitourinary Female: absent: Dysuria Musculoskeletal: Other (right shoulder pain). absent: Back Pain, Neck Pain Skin: Laceration. absent: Rash Neurological: Dizziness. absent: Headache, Focal Weakness Hemo/Lymphatic: absent: Easy Bleeding Psychiatric: absent: Depression, Suicidal Ideation Physical Exam - Physical Exam Narrative Physical Exam (Text): Head: No scalp deformities. No scalp lacerations. Eyes: PERRL. EOMI. Conjunctivae are not pale. Visual acuity and dai at baseline. No pain with eye movements. No proptosis. ENT: Laceration, superficial noted to inner portion of upper lip, does not extend through and through, there is poor dentition. There is no facial bony deformity, although there is tenderness noted to nasal bridge with superficial laceration. No septal hematoma or active bleeding. No pain with jaw movements. Neck: Supple. Full ROM. No JVD. No lymphadenopathy. No midline tenderness. Cardiovascular: Regular rate. Regular rhythm. Systolic murmur. Distal pulses intact. Pulmonary/Chest: No evidence of respiratory distress. Clear to auscultation bilaterally. No wheezing, rales or rhonchi. Palpable right lower chest wall tenderness with no crepitus. Abdominal: Soft and non-distended. There is no tenderness. No rebound, guarding, or rigidity. No organomegaly. Good bowel sounds. Back: No CVA tenderness. No midline pain or tenderness. Extremities: No edema. No cyanosis. No clubbing. Pain to right anterior shoulder no deformity, no elbow or wrist pain. No calf tenderness. No pain with hip movements or range of motion. Skin: Skin is warm and dry. No petechiae. No purpura. There are old healing lesions to right abdominal wall with no crusting or vesicles. Neurological: Alert, awake, and oriented to person, place, time. No focal motor or sensory deficits. No facial droop. Psychiatric: Good eye contact. Normal interaction, affect, and behavior. Vital Signs Reviewed: Yes Temperature: Afebrile Appearance: Positive for: Uncomfortable Pain Distress: Mild Mental Status: Positive for: Alert and Oriented X 3 Medical Decision Making ED Course and Treatment: 06/15/18 14:55 Impression: 87 year old female with injury s/p fall. Plan: -- Maxillofacial CT -- Head CT -- Labs -- Chest X-ray -- EKG -- Urinalysis -- Fingerstick -- Reassess and disposition Progress Notes: Patient on intial exam is awake, alert, no focal weakness noted. She has trauma to face but superficial laceration to nasal bridge. This was cleansed with normal saline and steri strip applied. There is also injury to upper lip but does not cross gaby border and is in inner mucosa. Right shoulder pain noted but no deformity. She reportedly was recently diagnosed and treated for shingles and was prescribed narcotic pain mediation. She has been taking this for several days and denies adverse effect. Patient states she has felt somewhat short of breath with exertion recently although denies chest pain. CXR unremarkable: 06/15/2018 15:30 Chest X-ray IMPRESSION: No active disease. Dictator: Nitin Alcocer MD 06/15/2018 15:[address] IMPRESSION: Unremarkable non contrast enhanced CT of the maxillofacial bones. Dictator: Nitin Alcocer MD 06/15/2018 15:[address] IMPRESSION: Stable appearance of calcified meningioma. No acute intracranial findings. Dictator: Nitin Alcocer MD 06/15/18 19:46 Imaging studies reviewed with patient. She is uncertain of LOC, but states she felt dizzy prior to following. Serial exams reveals no focal neuro deficits in the ED. Will admit to telemetry bed for serial exams and monitoring given her past history. She denies any chest pain or shortness of breath currently. Case d/w Dr. Asher accepts admission to his service. No melena or active bleeding noted at this time. 06/15/18 19:52 - Lab Interpretations I have reviewed the lab results: Yes - RAD Interpretation Administrative Tech: Radiologist - EKG Interpretation EKG Interpretation (Text): 06/15/18 19:46 EKG at 1431 normal sinus rhythm with sinus arrhythmia Interpreted by ED Physician: Yes Type: 12 lead EKG - Scribe Statement The provider has reviewed the documentation as recorded by the [place] Provider Scribe Attestation: All medical record entries made by the Lnareibhiral were at my direction and personally dictated by me. I have reviewed the chart and agree that the record accurately reflects my personal performance of the history, physical exam, medical decision making, and the department course for this patient. I have also personally directed, reviewed, and agree with the discharge instructions and disposition. Disposition/Present on Arrival - Present on Arrival Any Indicators Present on Arrival: No History of DVT/PE: No History of Uncontrolled Diabetes: No Urinary Catheter: No History of Decub. Ulcer: No History Surgical Site Infection Following: None - Disposition Have Diagnosis and Disposition been Completed?: Yes Diagnosis: Syncope, Dyspnea, Lip injury, Nasal contusion, Laceration of nose, Contusion of right shoulder, Anemia Disposition: HOSPITALIZED Disposition Time: 17:40 Patient Plan: Admission, Telemetry Patient Problems: Current Active Problems Problem Status Onset Contusion of right shoulder Acute Dyspnea Acute Laceration of nose Acute Lip injury Acute Nasal contusion Acute Syncope Acute Condition: FAIR
--- NOTE | 2018-06-15 15:35 | RAD ---
Date of service: 06/15/2018 HISTORY: sob COMPARISON: No prior. TECHNIQUE: 1 view obtained. FINDINGS: LUNGS: No active pulmonary disease. PLEURA: No significant pleural effusion identified, no pneumothorax apparent. CARDIOVASCULAR: Aortic calcification Normal cardiac size. No pulmonary vascular congestion. OSSEOUS STRUCTURES: No significant abnormalities. VISUALIZED UPPER ABDOMEN: Normal. OTHER FINDINGS: None. IMPRESSION: No active disease.
[2018-06-15 15:36] LABS: BASO # 0.03 K/mm3 (0.0-2.0); BASO % 0.7 % (0.0-3.0); EOS # 0.1 (0.0-0.7); EOS % 2.4 % (1.5-5.0); HEMOGLOBIN 10.7 g/dL (12.0-16.0); LYMPH # 1.2 (1.2-3.4); LYMPH % 28.3 % (22.0-35.0); MEAN CELL VOLUME 89.6 fl (80.0-105.0); MEAN CORPUSCULAR HEMOGLOBIN 28.5 pg (25.0-35.0); MEAN CORPUSCULAR HGB CONC 31.8 g/dl (31.0-37.0); MEAN PLATELET VOLUME 8.8 fl (7.0-11.0); MONO # 0.2 (0.1-0.6); MONO % 5.6 % (1.0-6.0); RBC 3.76 10^6/uL (3.5-6.1); RED CELL DISTRIBUTION WIDTH 15.6 % (11.5-14.5); WHITE BLOOD COUNT 4.1 10^3/uL (4.5-11.0)
[2018-06-15 15:51] LABS: ALB/GLOB RATIO 0.9 (1.1-1.8); ALBUMIN 3.1 g/dL (3.0-4.8); ALT/SGPT 16 U/L (7-56); AST/SGOT 18 U/L (14-36); BLOOD UREA NITROGEN 24 mg/dL (7-21); CALCIUM 8.9 mg/dL (8.4-10.5); GFR NON-AFRICAN AMERICAN > 60
[2018-06-15 15:53] LABS: INR 1.06; PARTIAL THROMBOPLASTIN TIME 31.4 Seconds (26.9-38.3); PROTHROMBIN TIME 11.8 SECONDS (9.4-12.5)
[2018-06-15 16:02] LABS: B-TYPE NATRIURETIC PEPTIDE 111 pg/mL (0-450); TROPONIN I < 0.01 ng/mL
--- NOTE | 2018-06-15 17:28 | CT ---
Date of service: 06/15/2018 PROCEDURE: CT HEAD WITHOUT CONTRAST. HISTORY: syncope COMPARISON: CT 12/03/2016 TECHNIQUE: Axial computed tomography images were obtained through the head/brain without intravenous contrast. Radiation dose: Total exam DLP = 966.22 mGy-cm. This CT exam was performed using one or more of the following dose reduction techniques: Automated exposure control, adjustment of the mA and/or kV according to patient size, and/or use of iterative reconstruction technique. FINDINGS: HEMORRHAGE: No intracranial hemorrhage. BRAIN: There is a calcified mass in the left frontal convexity on the left side of the falx consistent with a meningioma. This measures 31 x 35 x 34 mm. This is unchanged compared to 12/03/2016. No atrophy or chronic microvascular ischemic changes. VENTRICLES: Unremarkable. No hydrocephalus. CALVARIUM: Unremarkable. PARANASAL SINUSES: Unremarkable as visualized. No significant inflammatory changes. MASTOID AIR CELLS: Unremarkable as visualized. No inflammatory changes. OTHER FINDINGS: None. IMPRESSION: Stable appearance of calcified meningioma. No acute intracranial findings
--- NOTE | 2018-06-15 17:30 | CT ---
Date of service: 06/15/2018 PROCEDURE: CT MAXILLOFACIAL BONES WITHOUT CONTRAST HISTORY: facial trauma COMPARISON: None available. TECHNIQUE: Contiguous axial CT images of the maxillofacial bones were obtained. Coronal and sagittal reformats were generated. Radiation dose: Total exam DLP = 786.63 mGy-cm. This CT exam was performed using one or more of the following dose reduction techniques: Automated exposure control, adjustment of the mA and/or kV according to patient size, and/or use of iterative reconstruction technique. FINDINGS: NASAL BONES: Unremarkable. ORBITS: Unremarkable. PARANASAL SINUSES/ MASTOIDS: Clear. MAXILLA: Unremarkable. MANDIBLE/ TEMPOROMANDIBULAR JOINTS: Unremarkable. SKULL BASE: Unremarkable. TEMPORAL BONES: Middle ears and mastoid grossly unremarkable. OTHER FINDINGS: None. IMPRESSION: Unremarkable non contrast enhanced CT of the maxillofacial bones.
[2018-06-15 17:51] LABS: PH,URINE 6.5 (4.7-8.0); URINE APPEARANCE SLIGHT-CLOUDY (CLEAR); URINE BILIRUBIN NEGATIVE (NEGATIVE); URINE BLOOD NEGATIVE (NEGATIVE); URINE COLOR YELLOW (YELLOW); URINE GLUCOSE (UA) NEGATIVE (NEGATIVE); URINE LEUKOCYTE ESTERASE TRACE Leu/uL (NEGATIVE); URINE PROTEIN NEGATIVE mg/dL (<30 mg/dL); URINE UROBILINOGEN 0.2 E.U./dL (<1 E.U./dL)
[2018-06-15] MEDS ORDERED: LENALIDOMIDE 10 MG PO SCH (20:45)
[2018-06-15 21:39] VITALS: BMI 20.1
[2018-06-15] MEDS ORDERED: Pneumococcal 23-Valent Vaccine IM ONE (21:39)
[2018-06-15] MEDS ORDERED: Influenza Vaccine 60 mcg/0.5 mL SYR (4YR UP) IM ONE (21:39)
[2018-06-16 05:39] VITALS: RESP 18; O2SAT 98
--- NOTE | 2018-06-16 09:17 | CARD ---
APPROVED REPORT Date of service: 06/15/2018 EKG Measurement Heart [id number] <Conclusion> Normal sinus rhythm with sinus arrhythmia Normal ECG
[2018-06-16] MEDS ORDERED: Cholecalciferol 1,000 INTLU TAB PO SCH (10:00)
--- NOTE | 2018-06-16 12:26 | RAD ---
Date of service: 06/15/2018 PROCEDURE: Radiographs of the Right Shoulder HISTORY: trauma to shoulder COMPARISON: No prior. TECHNIQUE: 3 views obtained. FINDINGS: BONES: Normal. No fracture. JOINTS: Normal. Glenohumeral and acromioclavicular joints preserved. No osteoarthritis. SOFT TISSUES: Normal. OTHER FINDINGS: None. IMPRESSION: Normal radiographs of the right shoulder.
--- NOTE | 2018-06-16 15:05 | CP.PCM.APN ---
Subjective - Date & Time of Evaluation Date of Evaluation: 06/16/18 Time of Evaluation: 12:00 - Subjective Subjective: pt seen and examined at bedside, pt offers no complaints, in no acute distress Review of Systems - Review of Systems All systems: reviewed and no additional remarkable complaints except Objective - Vital Signs/Intake and Output Vital Signs (last 24 hours): Temp Pulse Resp BP Pulse Ox 97.9 F 69 18 119/61 98 06/16/18 12:00 06/16/18 12:00 06/16/18 12:00 06/16/18 12:00 06/16/18 05:39 Intake and Output: 06/16/18 06/16/18 06:59 18:59 Intake Total 60 Output Total 0 Balance 60 - Medications Medications: Current Medications Acetaminophen (Tylenol 325mg Tab) 650 mg PO Q4H PRN PRN Reason: fever/pain Alprazolam (Xanax) 0.25 mg PO Q8 PRN; Protocol PRN Reason: Anxiety Stop: 06/22/18 20:40 Aspirin (Ecotrin) 81 mg PO DAILY [facility] Last Admin: 06/16/18 09:17 Dose: 81 mg Calcium Carbonate (Oscal) 500 mg PO DAILY [facility] Last Admin: 06/16/18 09:17 Dose: 500 mg Cholecalciferol (Vitamin D) 1,000 intlu PO DAILY [facility] Last Admin: 06/16/18 09:17 Dose: 1,000 intlu Cyanocobalamin (Vitamin B12 1000 Mcg Tab) 1,000 mcg PO DAILY [facility] Last Admin: 06/16/18 09:18 Dose: 1,000 mcg Gemfibrozil (Lopid) 600 mg PO DAILY [facility] Last Admin: 06/16/18 09:17 Dose: 600 mg Non-Formulary Medication (Lenalidomide [Revlimid]) 10 mg PO Q21D [facility] Tramadol HCl (Ultram) 50 mg PO Q6 PRN PRN Reason: Pain, moderate (4-7) Last Admin: 06/16/18 14:33 Dose: 50 mg - Labs Labs: 06/15/18 15:26 06/15/18 15:26 PT 11.8 SECONDS (9.4-12.5) 06/15/18 15:26 INR 1.06 06/15/18 15:26 APTT 31.4 Seconds (26.9-38.3) 06/15/18 15:26 - Constitutional Appears: No Acute Distress - Eye Exam Eye Exam: Normal appearance - ENT Exam ENT Exam: Normal Exam Additional comments: steristrips to nasal bridge, upper lip swelling - Respiratory Exam Respiratory Exam: Clear to Ausculation Bilateral, NORMAL BREATHING PATTERN - Cardiovascular Exam Cardiovascular Exam: +S1, +S2 - Neurological Exam Neurological Exam: Alert, Awake - Psychiatric Exam Psychiatric exam: Normal Affect - Skin Skin Exam: Intact Assessment and Plan - Assessment and Plan (Free Text) Plan: ITS Impressions Chest X-Ray 06/15/18 14:46 IMPRESSION: No active disease. Head CT 06/15/18 14:46 IMPRESSION: Stable appearance of calcified meningioma. No acute intracranial findings Maxillofacial CT 06/15/18 14:47 IMPRESSION: Unremarkable non contrast enhanced CT of the maxillofacial bones. Shoulder X-Ray 06/15/18 16:45 IMPRESSION: Normal radiographs of the right shoulder. pt is a 87 yr old female with pmh sig for hld, myeloma, skin ca, hyperthyriodism, recent shingles who presented to the ER s/p dizziness and mechanical fall now undergoing further evaluation. per discussion with primary RN, plan for carotid US and MRI and if negative pt may be dc home per PMD. will follow up on diagnostic testing. BPCI/TIC - BPCIA/TIC Educated pt/family on BPCIA/CIR/Med to Bed Programs: N/A Flyers given, including [facility] Beneficiary letter: N/A Pt/family verbalized understanding & agreed to program: N/A
--- NOTE | 2018-06-16 15:27 | MRI ---
Date of service: 06/16/2018 PROCEDURE: MRI BRAIN WITHOUT CONTRAST HISTORY: SYNCOPE COMPARISON: None available. TECHNIQUE: Multiplanar, multisequence MR images of the brain were obtained without intravenous contrast enhancement. FINDINGS: HEMORRHAGE: None DWI: No evidence of an acute or early subacute infarction. BRAIN PARENCHYMA: There is a large mass on the left side of the falx in the frontal convexity consistent with a meningioma. This measures 28 mm wide by 35 mm AP x 29 mm height. There loss of the normal fluid intensity in the right internal auditory canal. This could represent a lesion such as acoustic neuroma or meningioma. The finding is best seen on axial image 7 series 4 VENTRICLES: Unremarkable. No hydrocephalus. CRANIUM: Unremarkable. ORBITS: Grossly unremarkable. PARANASAL SINUSES/MASTOIDS: Clear VASCULAR SYSTEM: Skull base flow voids intact. OTHER FINDINGS: None. IMPRESSION: There is a large mass on the left side of the falx in the frontal convexity consistent with a meningioma. This measures 28 mm wide by 35 mm AP x 29 mm height. There loss of the normal fluid intensity in the right internal auditory canal. This could represent a lesion such as acoustic neuroma or meningioma.
--- NOTE | 2018-06-16 18:04 | US ---
PROCEDURE: Carotid artery duplex ultrasound HISTORY: Carotid stenosis syncope PHYSICIAN(S): Narayan Blandon MD. TECHNIQUE: Duplex sonography and color-flow Doppler were used to evaluate the carotid bifurcations and limited segments of the vertebral arteries bilaterally. FINDINGS: There is moderate to extensive smooth heterogeneous focal plaque noted at the carotid bifurcations bilaterally. The peak systolic velocity in the proximal right internal carotid artery is 108 cm/sec. This corresponds to a 40-59 percent proximal right ICA stenosis. Normal systolic velocities are noted in the proximal right external carotid artery. There is antegrade flow in the right vertebral artery. The peak systolic velocity in the proximal left internal carotid artery is 317 cm/sec. The end-diastolic velocity at this position is 95 cm/second. This corresponds to a severe 80-99 percent proximal left ICA stenosis. Normal systolic velocities are noted in the proximal left external carotid artery. There is antegrade flow in the left vertebral artery. IMPRESSION: 1. 80-99 percent proximal left ICA stenosis 2. 40-59 percent proximal right ICA stenosis 3. Antegrade flow in both vertebral arteries.
--- NOTE | 2018-06-16 18:30 | HP ---
DATE OF EXAM: 06/16/2018 HISTORY OF PRESENT ILLNESS: An 87-year-old white female, with a recent history of multiple myeloma, being treated. Recent history of right-sided thoracic zoster with postherpetic neuropathy. The patient has history of a stable meningioma in the past. The patient was at home when she developed a fall, possible syncope, possible loss of consciousness with lacerations of her nose and lip, also contusion of her right shoulder. The patient came to the emergency room. She had facial, CAT scan of the head which only revealed meningioma. No new disease. It actually showed no fracture of the face. The patient's bridge of the nose was glued, bleeding was staunched. The patient does have a history of myeloma and being treated. She does have episodes of diarrhea, which have somewhat resolved. She was taking OxyContin for pain from her zoster with postherpetic neuropathy. REVIEW OF SYSTEMS: Cardiac is negative for palpitations, chest pain, shortness of breath, lightheadedness or dizziness. Neurological is positive only for this fall and some occasional lightheadedness. The patient denies any syncope, headache, loss of strength or sensation in the upper or lower extremities. Respiratory is negative for shortness of breath, palpitations, or cough. GI is negative for vomiting, diarrhea, or nausea. is negative for dysuria, hematuria, or frequency. PHYSICAL EXAMINATION: GENERAL: Shows a well-developed, but thin white female, in no apparent distress. NEUROLOGIC: She is awake, alert and oriented x3. Neurological examination is grossly intact. HEART: Reveals sinus rhythm. CHEST: Clear to auscultation. ABDOMEN: Benign. HEENT: There is swelling of the upper lip and also of the bridge of the nose with recent eschar. There are bilateral carotid bruits. EXTREMITIES: Without cyanosis, clubbing, or edema. IMPRESSION: A fall, possible syncope, history of meningioma, history of myeloma, history of postherpetic neuropathy, bilateral carotid bruits, and mild anxiety disorder. Lobito Asher MD
[2018-06-16 19:06] VITALS: BP 131/65; PULSE 73; TEMP 98.2
[2018-06-29] MEDS ORDERED: BORTEZOMIB 3.5 MG SQ SCH (10:00)
== END 2018-06-16 21:20 | disposition home or self-care (01) ==
LOC: ED 14:10 → INTOOBSV 18:06 → ERH 18:06 → 2RSO 20:43
PROVIDERS: ADMIT Internal Medicine; ATTEND Internal Medicine
DX: R55 Syncope and collapse (principal); C90.00 Multiple myeloma not having achieved remission; B02.29 Other postherpetic nervous system involvement; F41.9 Anxiety disorder, unspecified; D32.9 Benign neoplasm of meninges, unspecified; D64.9 Anemia, unspecified; R06.00 Dyspnea, unspecified; S01.21XA Laceration without foreign body of nose, initial encounter; S40.011A Contusion of right shoulder, initial encounter; Z87.01 Personal history of pneumonia (recurrent); Z90.49 Acquired absence of other specified parts of digestive tract; Z90.710 Acquired absence of both cervix and uterus; Z96.659 Presence of unspecified artificial knee joint; W19.XXXA Unspecified fall, initial encounter; Z88.8 Allergy status to other drugs, medicaments and biological substances; Z88.6 Allergy status to analgesic agent; Z88.5 Allergy status to narcotic agent; Z91.013 Allergy to seafood
CPT/HCPCS: 70450; 70486; 70551; 71045; 73030; 80053; 81001; 82550; 82948; 83615; 83735; 83880; 84484; 85025; 85610; 85730; 87086; 93005; 93880; 99284; G0378

== ENCOUNTER 2018-06-19 10:14 | Outpatient (CLI) | payer MEDICARE, BC | END 2018-06-19 10:15 | disposition home or self-care (01) | LOC: RAD 10:14 | DX: I65.23 Occlusion and stenosis of bilateral carotid arteries (principal) ==